=== PATIENT | female | born 1985 | race Two or more races ===

== ENCOUNTER 2021-03-08 16:17 | Outpatient (REF) | payer BC, MEDICAID, SELFPAY ==
[2021-03-08 16:42] LABS: MANUAL DIFF FLAG NO
[2021-03-08 16:50] LABS: Basophils Absolute Auto 0.1 X10*3/uL (0.0-0.2); Basophils Percent Auto 0.5 % (0-2); Eosinophils Absolute Auto 0.2 X10*3/uL (0.0-0.4); Hematocrit 40.5 % (37-47); Hemoglobin 13.1 g/dl (12.0-16.0); Imm Gran Abs Auto 0.03 X10*3/uL (0.00-0.03); Imm Gran Pct Auto 0.3 % (0.0-0.4); Lymphocytes Absolute Auto 2.4 X10*3/uL (1.2-4.9); Lymphocytes Percent Auto 23.8 % (20-40); Mean Corpuscular HGB Conc 32.3 g/dl (31.0-35.0); Mean Corpuscular Hemoglobin 27.5 pg (27.0-33.0); Mean Corpuscular Volume 84.9 fL (80-98); Mean Platelet Volume 10.4 fL (9.4-12.3); Monocytes Absolute Auto 0.6 X10*3/uL (0.1-1.2); Monocytes Percent Auto 5.8 % (2-11); Neutrophils Absolute Auto 6.9 X10*3/uL (2.0-8.3); Neutrophils Percent Auto 67.6 % (45-73); Platelet Count 340 X10*3/uL (160-400); Red Blood Count 4.77 X10*6/uL (4.20-5.50); Red Cell Distribution Width 13.9 % (11.0-16.0); White Blood Count 10.1 X10*3/uL (4.8-10.8)
[2021-03-08 17:48] LABS: Alanine Aminotransferase 22 U/L (0-31); Albumin Level 3.8 g/dL (3.5-5.0); Alkaline Phosphatase 94 U/L (39-117); Anion Gap 12 (12-20); Aspartate Amino Transferase 24 U/L (5-31); Bilirubin Total 0.2 mg/dL (0.0-1.0); Blood Urea Nitrogen 15 mg/dL (9-16); C Reactive Protein 1.87 mg/dL (< or = 0.50); Calcium 9.2 mg/dL (8.4-10.2); Carbon Dioxide 26 mmol/L (22-29); Chloride 105 mmol/L (96-108); Estimated Glomerular Filt Rate > 60; Glucose Random 111 mg/dL (60-115); Potassium 4.5 mmol/L (3.3-5.1); Sodium 138 mmol/L (135-145); Total Protein 7.2 g/dL (6.5-8.0)
[2021-03-08 17:57] LABS: Rheumatoid Factor < 15.0 IU/mL (<15.0)
[2021-03-08 18:05] LABS: Free T4 (Free Thyroxine) 0.94 ng/dL (0.71-1.85); Thyroid Stimulating Hormone 1.83 uIU/mL (0.32-4.0)
[2021-03-12 23:06] LABS: Anti Nuclear Antibody Screen POSITIVE (NEGATIVE)
== END 2021-03-08 16:18 | disposition home or self-care (01) ==
LOC: HO.LAB 16:17
PROVIDERS: PCP Internal Medicine; Visit Provider Internal Medicine
DX: M25.562 Pain in left knee (principal); M25.561 Pain in right knee; R63.5 Abnormal weight gain
CPT/HCPCS: 36415; 80053; 84439; 84443; 85025; 86038; 86039; 86140; 86431

== ENCOUNTER 2021-06-06 17:00 | Outpatient (RCR) | payer MEDICAID, SELFPAY | END 2021-06-13 16:47 | disposition home or self-care (01) | LOC: HO.PTCHIC 17:00 | PROVIDERS: PCP Internal Medicine; Visit Provider Internal Medicine | DX: M25.562 Pain in left knee (principal); M25.561 Pain in right knee | CPT/HCPCS: 97110; 97162 ==

== ENCOUNTER 2023-08-01 09:12 | Outpatient (REF) | payer MEDICAID, SELFPAY ==
[2023-08-01 14:29] LABS: MANUAL DIFF FLAG NO
[2023-08-01 14:34] LABS: Basophils Absolute Auto 0.1 X10*3/uL (0.0-0.2); Basophils Percent Auto 1.2 % (0-2); Eosinophils Absolute Auto 0.6 X10*3/uL (0.0-0.4); Eosinophils Percent Auto 5.9 % (0-4); Hematocrit 41.2 % (37.0-47.0); Hemoglobin 12.8 g/dl (12.0-16.0); Imm Gran Abs Auto 0.03 X10*3/uL (0.00-0.03); Imm Gran Pct Auto 0.3 % (0.0-0.4); Lymphocytes Percent Auto 42.5 % (20-40); Mean Corpuscular HGB Conc 31.1 g/dl (31.0-35.0); Mean Corpuscular Hemoglobin 26.3 pg (27.0-33.0); Mean Corpuscular Volume 84.6 fL (80.0-98.0); Mean Platelet Volume 11.1 fL (9.4-12.3); Monocytes Absolute Auto 0.6 X10*3/uL (0.1-1.2); Monocytes Percent Auto 6.6 % (2-11); Neutrophils Absolute Auto 4.1 x10*3/uL (2.0-8.3); Neutrophils Percent Auto 43.5 % (45-73); Platelet Count 386 X10*3/uL (160-400); Red Blood Count 4.87 X10*6/uL (4.20-5.50); Red Cell Distribution Width 14.4 % (11.0-16.0); White Blood Count 9.5 X10*3/uL (4.8-10.8)
[2023-08-01 14:56] LABS: Alanine Aminotransferase 14 U/L (0-31); Alkaline Phosphatase 78 U/L (39-117); Anion Gap 12 (12-20); Aspartate Amino Transferase 17 U/L (5-31); Bilirubin Total 0.2 mg/dL (0.0-1.0); Blood Urea Nitrogen 15 mg/dL (9-16); Calcium 9.6 mg/dL (8.4-10.2); Carbon Dioxide 29 mmol/L (22-29); Chloride 103 mmol/L (96-108); Cholesterol 162 mg/dL (<200); Estimated Glomerular Filt Rate > 60; Glucose Random 84 mg/dL (60-115); HDL Cholesterol 47 mg/dL (>40); LDL Cholesterol Calculated 97 mg/dL (<100); Potassium 3.8 mmol/L (3.3-5.1); Sodium 140 mmol/L (135-145); Total Protein 7.4 g/dL (6.5-8.0); Triglycerides 93 mg/dL (<150)
[2023-08-01 15:14] LABS: TSH reflex Free T4 2.95 uIU/mL (0.32-4.0)
== END 2023-08-01 09:13 | disposition home or self-care (01) ==
LOC: HO.CHCLDS 09:12
PROVIDERS: Visit Provider Family Medicine
DX: F41.9 Anxiety disorder, unspecified (principal)
CPT/HCPCS: 36415; 80053; 80061; 84443; 85025

== ENCOUNTER 2023-08-25 12:33 | Outpatient (REF) | payer MEDICAID, SELFPAY ==
[2023-08-25 14:12] LABS: MANUAL DIFF FLAG NO
[2023-08-25 14:20] LABS: Appearance Urine Clear; Color Urine Yellow; Glucose Urine UA Negative (Negative); Leukocyte Esterase Urine Negative (Negative); Nitrite Urine Negative (Negative); PH 5.5 (5.0-9.0); Urine Blood Negative (Negative); Urine Ketones Negative (Negative); Urine Protein Negative (Neg-Trace)
[2023-08-25 14:21] LABS: Basophils Absolute Auto 0.1 X10*3/uL (0.0-0.2); Basophils Percent Auto 0.8 % (0-2); Eosinophils Absolute Auto 0.3 X10*3/uL (0.0-0.4); Eosinophils Percent Auto 2.9 % (0-4); Hematocrit 37.4 % (37.0-47.0); Hemoglobin 11.5 g/dl (12.0-16.0); Imm Gran Abs Auto 0.04 X10*3/uL (0.00-0.03); Imm Gran Pct Auto 0.5 % (0.0-0.4); Lymphocytes Absolute Auto 1.7 X10*3/uL (1.2-4.9); Lymphocytes Percent Auto 19.5 % (20-40); Mean Corpuscular HGB Conc 30.7 g/dl (31.0-35.0); Mean Corpuscular Hemoglobin 25.8 pg (27.0-33.0); Mean Corpuscular Volume 83.9 fL (80.0-98.0); Mean Platelet Volume 9.8 fL (9.4-12.3); Monocytes Absolute Auto 0.5 X10*3/uL (0.1-1.2); Monocytes Percent Auto 5.5 % (2-11); Neutrophils Absolute Auto 6.1 x10*3/uL (2.0-8.3); Neutrophils Percent Auto 70.8 % (45-73); Platelet Count 489 X10*3/uL (160-400); Red Blood Count 4.46 X10*6/uL (4.20-5.50); White Blood Count 8.6 X10*3/uL (4.8-10.8)
[2023-08-25 14:23] LABS: Bacteria Urine None Seen (None Seen); Hyaline Casts Urine 0-2 /LPF (0-2); RBC Urine 0-2 /HPF (0-2); WBC Urine 0-5 /HPF (0-5)
== END 2023-08-25 12:34 | disposition home or self-care (01) ==
LOC: HO.CHCLDS 12:33
PROVIDERS: Visit Provider Internal Medicine
DX: R31.0 Gross hematuria (principal)
CPT/HCPCS: 36415; 81001; 85025

== ENCOUNTER 2023-09-15 13:13 | Outpatient (REF) | payer MEDICAID, SELFPAY ==
[2023-09-15 14:30] LABS: MANUAL DIFF FLAG NO
[2023-09-15 14:36] LABS: Basophils Absolute Auto 0.1 X10*3/uL (0.0-0.2); Basophils Percent Auto 1.3 % (0-2); Eosinophils Absolute Auto 0.3 X10*3/uL (0.0-0.4); Eosinophils Percent Auto 4.1 % (0-4); Hematocrit 40.6 % (37.0-47.0); Hemoglobin 12.8 g/dl (12.0-16.0); Imm Gran Abs Auto 0.03 X10*3/uL (0.00-0.03); Imm Gran Pct Auto 0.5 % (0.0-0.4); Lymphocytes Absolute Auto 2.8 X10*3/uL (1.2-4.9); Mean Corpuscular HGB Conc 31.5 g/dl (31.0-35.0); Mean Corpuscular Hemoglobin 26.3 pg (27.0-33.0); Mean Corpuscular Volume 83.5 fL (80.0-98.0); Mean Platelet Volume 10.5 fL (9.4-12.3); Monocytes Absolute Auto 0.4 X10*3/uL (0.1-1.2); Monocytes Percent Auto 6.6 % (2-11); Neutrophils Absolute Auto 2.9 x10*3/uL (2.0-8.3); Neutrophils Percent Auto 44.5 % (45-73); Platelet Count 374 X10*3/uL (160-400); Red Blood Count 4.86 X10*6/uL (4.20-5.50); Red Cell Distribution Width 15.4 % (11.0-16.0); White Blood Count 6.4 X10*3/uL (4.8-10.8)
== END 2023-09-15 13:14 | disposition home or self-care (01) ==
LOC: HO.CHCLDS 13:13
PROVIDERS: Visit Provider Family Medicine
DX: D75.839 Thrombocytosis, unspecified (principal)
CPT/HCPCS: 36415; 85025

== ENCOUNTER 2023-11-04 14:08 | Outpatient (REF) | payer MEDICAID, SELFPAY ==
[2023-11-04 15:29] LABS: MANUAL DIFF FLAG NO
[2023-11-04 16:26] LABS: Basophils Absolute Auto 0.1 X10*3/uL (0.0-0.2); Basophils Percent Auto 0.9 % (0-2); Eosinophils Absolute Auto 0.2 X10*3/uL (0.0-0.4); Eosinophils Percent Auto 2.5 % (0-4); Hematocrit 42.6 % (37.0-47.0); Hemoglobin 13.8 g/dl (12.0-16.0); Imm Gran Abs Auto 0.03 X10*3/uL (0.00-0.03); Imm Gran Pct Auto 0.4 % (0.0-0.4); Lymphocytes Absolute Auto 2.2 X10*3/uL (1.2-4.9); Lymphocytes Percent Auto 27.7 % (20-40); Mean Corpuscular HGB Conc 32.4 g/dl (31.0-35.0); Mean Corpuscular Hemoglobin 27.2 pg (27.0-33.0); Mean Corpuscular Volume 83.9 fL (80.0-98.0); Mean Platelet Volume 10.9 fL (9.4-12.3); Monocytes Absolute Auto 0.5 X10*3/uL (0.1-1.2); Monocytes Percent Auto 6.1 % (2-11); Neutrophils Absolute Auto 4.8 x10*3/uL (2.0-8.3); Neutrophils Percent Auto 62.4 % (45-73); Platelet Count 287 X10*3/uL (160-400); Red Blood Count 5.08 X10*6/uL (4.20-5.50); Red Cell Distribution Width 15.3 % (11.0-16.0); White Blood Count 7.8 X10*3/uL (4.8-10.8)
[2023-11-04 16:38] LABS: Alanine Aminotransferase 20 U/L (0-31); Albumin Level 3.9 g/dL (3.5-5.0); Alkaline Phosphatase 63 U/L (39-117); Anion Gap 9 (12-20); Aspartate Amino Transferase 15 U/L (5-31); Bilirubin Total 0.3 mg/dL (0.0-1.0); Blood Urea Nitrogen 14 mg/dL (9-16); C Reactive Protein 0.59 mg/dL (< or = 0.50); Calcium 9.1 mg/dL (8.4-10.2); Carbon Dioxide 28 mmol/L (22-29); Chloride 107 mmol/L (96-108); Estimated Glomerular Filt Rate > 60; Glucose Random 102 mg/dL (60-115); Sodium 140 mmol/L (135-145); Total Protein 6.9 g/dL (6.5-8.0)
[2023-11-04 16:55] LABS: Appearance Urine Cloudy; Color Urine Yellow; Glucose Urine UA Negative (Negative); Leukocyte Esterase Urine Negative (Negative); Nitrite Urine Negative (Negative); PH 7.5 (5.0-9.0); Specific Gravity - Urine 1.025 (1.005-1.025); Urine Blood Negative (Negative); Urine Ketones Negative (Negative); Urine Protein Negative (Neg-Trace)
[2023-11-04 17:10] LABS: Bacteria Urine None Seen (None Seen); Hyaline Casts Urine 0-2 /LPF (0-2); RBC Urine 0-2 /HPF (0-2); Squamous Epithelial Cell Urine 0-2 /HPF (0-2); WBC Urine 0-5 /HPF (0-5)
[2023-11-04 17:19] LABS: Erythrocyte Sedimentation Rate 5 MM/HR (0-20)
[2023-11-05 21:58] LABS: Prot Elec - Alpha1 0.3 g/dL (0.2-0.3); Prot Elec - Alpha2 0.6 g/dL (0.5-0.9); Prot Elec - Beta 1 0.4 g/dL (0.4-0.6); Prot Elec - Beta 2 0.4 g/dL (0.2-0.5); Prot Elec - Gamma 1.2 g/dL (0.8-1.7); Prot Elec - Total Protein 6.9 g/dL (6.1-8.1)
[2023-11-05 22:23] LABS: Anti-Centromere B Antibodies <1.0 NEG AI (<1.0 NEG)
[2023-11-05 22:29] LABS: Anti DNA DS Antibody <1 IU/mL; Antibody to SS-A Antigen <1.0 NEG AI (<1.0 NEG); Antibody to SS-B Antigen <1.0 NEG AI (<1.0 NEG); Myeloperoxidase Antibody <1.0 AI; Proteinase 3 PR3 Antibodies <1.0 AI; SM/Ribonucleoprotein Ab <1.0 NEG AI (<1.0 NEG); Scleroderma 70 Antibody <1.0 NEG AI (<1.0 NEG); Smith Protein <1.0 NEG AI (<1.0 NEG)
[2023-11-06 11:43] LABS: Complement C3 137 mg/dL (83-193)
[2023-11-07 14:38] LABS: IgA 229 mg/dL (47-310); IgG 1220 mg/dL (600-1640); IgM 186 mg/dL (50-300)
[2023-11-09 13:34] LABS: Anti Nuclear Antibody Screen POSITIVE (NEGATIVE)
[2023-11-11 21:39] LABS: PTT (LAC) Screen 36 sec (<=40)
== END 2023-11-04 14:09 | disposition home or self-care (01) ==
LOC: HO.LAB 14:08
PROVIDERS: PCP Internal Medicine; Visit Provider Nurse Practitioner Family
DX: R76.8 Other specified abnormal immunological findings in serum (principal); R21 Rash and other nonspecific skin eruption; I32 Pericarditis in diseases classified elsewhere
CPT/HCPCS: 36415; 80053; 81001; 82550; 82784; 84165; 85025; 85597; 85598; 85613; 85652; 85730; 86021; 86038; 86039; 86140; 86160; 86225; 86235; 86334; 99212

== ENCOUNTER 2023-11-04 14:08 | Outpatient (AMB) | payer MEDICAID, SELFPAY ==
--- NOTE | 2023-11-04 14:11 | MHC.OFFVIS ---
Intake Vital Signs 11/04/23 14:13 Height 5 ft 2 in Weight 221 lb 9.033 oz BMI 40.5 BP 110/80 Blood Pressure Location Rt brachial Position Sitting Pulse 76 Pulse Source Pulse Oximeter Pulse Oximetry (%) 98 Oxygen Delivery Method Room Air Intake Visit Reasons: + ZOILA/CM Intake Note: New patient, presents today for +ZOILA. Floral Designer Required: No Accompanied by: Self / Same As Patient Allergies No Known Allergies Allergy (Verified 11/19/23 16:07) HPI HPI Comments History of Present Illness Details Ms. Saenz, 37 yoF presents today, on referral from PCP, for evaluation of History of +ZOILA 1:80 and precordial pain with a history of pericarditis. She was found to have pericarditis in recent weeks. She has no current symptoms as it was resolved with colchicine. The first occurrence of pericarditis was with her 2nd over 1 year ago. She denies other symptoms of CTD or inflammatory processes. [facility] Medical History (Updated 11/19/23 @ 17:01 by NORRIS Mcfadden) ZOILA positive Rash and nonspecific skin eruption Pericarditis in diseases classified elsewhere Pneumonia of left lower lobe due to infectious organism Pericardial effusion Adjustment disorder with mixed anxiety and depressed mood Anxiety Seasonal allergic rhinitis Mild gingivitis Family History Other Arthritis Social History Household Members: Spouse and Children Alcohol intake: former Patient Tobacco Use Status: Never used Tobacco Current occupational status: employed Current occupation: [employer] at [employer] Female Reproductive History Menstrual Total pregnancies: 2 Review of Systems Const All systems reviewed & are unremarkable except as noted in HPI and below Physical Exam Vital Signs: Last Vital Signs Pulse 76 11/04/23 14:13 BP 110/80 11/04/23 14:13 Pulse Ox 98 11/04/23 14:13 Oxygen Delivery Method Room Air 11/04/23 14:13 BMI result Body Mass Index 40.5 Vital signs reviewed. Constitutional: Non-toxic appearing. No acute distress. Well-developed and well-nourished. HEENT: Normocephalic and atraumatic. External auditory canals without erythema or edema bilaterally. Dry mucous membranes. No pharyngeal erythema or exudates. Skin: Warm and dry. No rashes or lesions noted. Neck: Full and painless range of motion. No cervical lymphadenopathy. Cardio: Regular rate and rhythm. No murmurs, gallops, or rubs. No lower extremity edema. No JVD. no chest wall or costovertebral tenderness Pulmonary: No respiratory distress. No accessory muscle usage. Gastrointestinal: Soft, nontender, and nondistended in all 4 quadrants. Normoactive bowel sounds in all 4 quadrants. Genitourinary: No CVA tenderness. Musculoskeletal: Normal range of motion in joints throughout the body. No deformity or other signs of injury. Neuro: Alert and oriented x4. Cranial nerves 2-12 grossly intact. No focal deficits appreciated. Assessment & Plan Assessment & Plan (1) Pericarditis in diseases classified elsewhere: Code(s): I32 - Pericarditis in diseases classified elsewhere (2) ZOILA positive: Code(s): R76.8 - Other specified abnormal immunological findings in serum Plan The patient has a history of a weakly positive ZOILA at 1:80. There is no records of ELVA so I will obtain updated labs for those. Pericarditis can be an accompanying feature to LUPUS. I do not see any other clinical signs on PE or noted in the patient's history for LUPUS/CTD. I will obtain a thorough Rheum panel an evaluate further. I spent 35 minutes reviewing history, evaluating patient and documenting. f/u 2 weeks Orders: Orders Immunoglobulins,IgG IgA IgM 11/04/23 I32 - Pericarditis in diseases classified elsewhere, R21 - Rash and other nonspecific skin eruption Complement C3 11/04/23 I32 - Pericarditis in diseases classified elsewhere, R21 - Rash and other nonspecific skin eruption Complement C4 11/04/23 I32 - Pericarditis in diseases classified elsewhere, R21 - Rash and other nonspecific skin eruption C Reactive Protein 11/04/23 I32 - Pericarditis in diseases classified elsewhere, R21 - Rash and other nonspecific skin eruption ZOILA Reflex Titer and Pattern 11/04/23 I32 - Pericarditis in diseases classified elsewhere, R21 - Rash and other nonspecific skin eruption ANCA Vasculitides 11/04/23 I32 - Pericarditis in diseases classified elsewhere, R21 - Rash and other nonspecific skin eruption Anti Extractable Nuclear Ag 11/04/23 I32 - Pericarditis in diseases classified elsewhere, R21 - Rash and other nonspecific skin eruption Erythrocyte Sedimentation Rate 11/04/23 I32 - Pericarditis in diseases classified elsewhere, R21 - Rash and other nonspecific skin eruption Sjogren's Antibodies 11/04/23 I32 - Pericarditis in diseases classified elsewhere, R21 - Rash and other nonspecific skin eruption UA w Microscopic 11/04/23 I32 - Pericarditis in diseases classified elsewhere, R21 - Rash and other nonspecific skin eruption Complete Blood Count Auto Diff 11/04/23 I32 - Pericarditis in diseases classified elsewhere, R21 - Rash and other nonspecific skin eruption Comprehensive Met. Panel 11/04/23 I32 - Pericarditis in diseases classified elsewhere, R21 - Rash and other nonspecific skin eruption Anti-Centromere B Antibodies 11/04/23 I32 - Pericarditis in diseases classified elsewhere, R21 - Rash and other nonspecific skin eruption Anti DNA DS Antibody 11/04/23 I32 - Pericarditis in diseases classified elsewhere, R21 - Rash and other nonspecific skin eruption Creatine Kinase Total 11/04/23 I32 - Pericarditis in diseases classified elsewhere, R21 - Rash and other nonspecific skin eruption Immunofixation Pnl, Serum 11/04/23 I32 - Pericarditis in diseases classified elsewhere, R21 - Rash and other nonspecific skin eruption Protein Electrophoresis, Serum 11/04/23 I32 - Pericarditis in diseases classified elsewhere, R21 - Rash and other nonspecific skin eruption Scleroderma 70 Antibody 11/04/23 I32 - Pericarditis in diseases classified elsewhere, R21 - Rash and other nonspecific skin eruption Lupus Anticoagulant Panel 11/04/23 I32 - Pericarditis in diseases classified elsewhere, R21 - Rash and other nonspecific skin eruption Coding Level of Care Code New Pt Level 3 (24464) Diagnoses Pericarditis in diseases classified elsewhere I32 ZOILA positive R76.8
[2023-11-04 14:13] VITALS: BP 110/80; PULSE 76; O2SAT 98; BMI 40.5
== END 2023-11-04 15:03 | disposition home or self-care (01) ==
PROVIDERS: PCP Internal Medicine; Visit Provider Nurse Practitioner Family
DX: R76.8 Other specified abnormal immunological findings in serum (principal); I32 Pericarditis in diseases classified elsewhere
CPT/HCPCS: 99203

== ENCOUNTER 2023-11-19 15:49 | Outpatient (AMB) | payer MEDICAID, SELFPAY ==
--- NOTE | 2023-11-19 16:02 | MHC.OFFVIS ---
Vital Signs 11/19/23 16:08 Height 5 ft 2 in Weight 487 lb 3.545 oz BMI 89.1 BP 120/76 Blood Pressure Location Rt brachial Position Sitting Pulse 91 Pulse Source Pulse Oximeter Pulse Oximetry (%) 98 Oxygen Delivery Method Room Air Intake Visit Reasons: Pericarditis with Hx of +ZOILA Intake Note: Patient last seen 11/04/23, presents today for follow up and test results. c/o corona tingling and numbness Pulp Refiner Operator Required: No Accompanied by: Child Allergies No Known Allergies Allergy (Verified 11/19/23 16:07) HPI Comments Details: Ms. Saenz, 37 yoF presents today, to review labs and diagnostics. She denies chest pain are recurrent since last visit. Initial history 11/04/2023: Ms. Saenz 37 yoF presents today, on referral from PCP, for evaluation of History of +ZOILA 1:80 and precordial pain with a history of pericarditis. She was found to have pericarditis in recent weeks. She has no current symptoms as it was resolved with colchicine. The first occurrence of pericarditis was with her 2nd over 1 year ago. She denies other symptoms of CTD or inflammatory processes. [facility] Medical History (Updated 12/14/23 @ 22:48 by NORRIS Mcfadden) Elevated CK ZOILA positive Rash and nonspecific skin eruption Pericarditis in diseases classified elsewhere Pneumonia of left lower lobe due to infectious organism Pericardial effusion Adjustment disorder with mixed anxiety and depressed mood Anxiety Seasonal allergic rhinitis Mild gingivitis Family History Other Arthritis Social History Household Members: Spouse and Children Alcohol intake: former Patient Tobacco Use Status: Never used Tobacco Current occupational status: employed Current occupation: [employer] at [employer] Review of Systems Const All systems reviewed & are unremarkable except as noted in HPI and below Physical Exam Vital Signs: Last Vital Signs Pulse 91 11/19/23 16:08 BP 120/76 11/19/23 16:08 Pulse Ox 98 11/19/23 16:08 Oxygen Delivery Method Room Air 11/19/23 16:08 BMI result Body Mass Index 89.1 APPEARANCE: Patient in no acute distress EYES no redness, normal EARS:? External ear normal. NOSE/SINUS:? Airflow through both nares, no nasal discharge, no bleeding THROAT:? Oral mucosa moist, no ulcerations NECK:? No thyromegaly or masses, no adenopathy, trachea midline. HEART:? Regular rhythm, S1-S2 heard, no murmurs, rubs or gallops. LUNG:? Clear to percussion and auscultation EXTREMITIES:? No edema, no calf tenderness, normal peripheral pulses. NEURO:? Oriented and alert x3.? No focal weakness.? Reflexes symmetric.? Gait normal. SKIN:? There are no skin lesions evident. No objective signs of Raynaud's phenomenon. JOINT EXAM: Cervical Spine:.? Full range of motion without pain; no tenderness. Thoracic Spine:.? No scoliosis.? No tenderness on palpation. Lumbar Spine:.? Alignment normal.? Full range of motion without pain, no tenderness. Chest Wall:.? No tenderness, swelling, increased warmth or erythema. Hands:.? Normal pain-free range of motion without tenderness, swelling, increased warmth or erythema. Able to make a full fist and has a good scale operator strength. Wrists:.? Normal pain-free range of motion without tenderness, swelling, increased warmth or erythema. Elbows:. Normal pain-free range of motion without tenderness, swelling, increased warmth or erythema. Shoulders:.?? Full range of motion without pain. No tenderness, weakness, swelling, increased warmth or erythema. Hips:.? Full range of motion without pain. Hip bursa:.? No tenderness. Knees:.?? Normal pain-free range of motion without tenderness, swelling, increased warmth or erythema.? There is no effusion or crepitation Ankles:.? Normal pain-free range of motion without tenderness, swelling, increased warmth or erythema. Feet:.? Normal pain-free range of motion without tenderness, swelling, increased warmth or erythema. Tender points:? No tenderness to digital palpation at the occiput, trapezius, second rib, lateral epicondyle, knees, greater trochanter and gluteal area bilaterally. ? Assessment & Plan Assessment & Plan (1) ZOILA positive: Code(s): R76.8 - Other specified abnormal immunological findings in serum Category: Medical (2) Rash and nonspecific skin eruption: Comment: erythematous macules on chest Code(s): R21 - Rash and other nonspecific skin eruption Category: Medical (3) Pericarditis in diseases classified elsewhere: Code(s): I32 - Pericarditis in diseases classified elsewhere Category: Medical (4) Elevated CK: Code(s): R74.8 - Abnormal levels of other serum enzymes Category: Medical Plan The patient had a weakly positive ZOILA at 1:80. All subsequent labs were negative for connective tissue or inflammatory processes. Her episodes of pericarditis can be primary care pericarditis. However given that she is in the age and gender demographics for lupus, we will continue to monitor. The nonspecific rash has since resolved and was likely contact dermatitis. The patient also has a mildly elevated CK which we will also keep an eye on. Follow-up in 6 months 15 minutes spent if reviewing chart, evaluating patient and documenting Coding Level of Care Code Est Pt Level 2 (80349) Diagnoses ZOILA positive R76.8 Rash and nonspecific skin eruption R21 Pericarditis in diseases classified elsewhere I32 Elevated CK R74.8
[2023-11-19 16:08] VITALS: BP 120/76; PULSE 91; O2SAT 98; BMI 89.1
== END 2023-11-19 16:33 | disposition home or self-care (01) ==
PROVIDERS: PCP Internal Medicine; Referring Provider Internal Medicine; Visit Provider Nurse Practitioner Family
DX: R76.8 Other specified abnormal immunological findings in serum (principal); R21 Rash and other nonspecific skin eruption; I32 Pericarditis in diseases classified elsewhere; R74.8 Abnormal levels of other serum enzymes
CPT/HCPCS: 99212

== ENCOUNTER → 2023-11-19 15:49 | Outpatient (BNVA) | payer MEDICAID, SELFPAY | PROVIDERS: PCP Internal Medicine; Visit Provider Nurse Practitioner Family | DX: R76.8 Other specified abnormal immunological findings in serum (principal); R74.8 Abnormal levels of other serum enzymes; R21 Rash and other nonspecific skin eruption; I32 Pericarditis in diseases classified elsewhere | CPT/HCPCS: 99212 ==

== ENCOUNTER 2024-03-04 07:30 | Outpatient (AMB) | payer MEDICAID, SELFPAY ==
--- NOTE | 2024-03-04 07:31 | MHC.OFFVIS ---
Vital Signs 03/04/24 07:38 Height 5 ft 2 in Weight 223 lb 12.307 oz BMI 40.9 BP 120/82 Blood Pressure Location Lt brachial Position Sitting Pulse 86 Pulse Source Pulse Oximeter Pulse Oximetry (%) 99 Oxygen Delivery Method Room Air Intake Visit Reasons: +ZOILA/CM Intake Note: Patient presents for + ZOILA. Feeling constant paint in both hips and legs. Tingling and numbness on both hands. Allergies No Known Allergies Allergy (Verified 03/04/24 07:37) Medication List - Last Reconciled 03/04/24 by Prasanth Torres MD docosahexaenoic acid (Algal [place]-3 DHA) mg PO mecobalamin (vitamin B12) (B12 Active) 1,000 mcg PO DAILY HPI Comments Details: Patient returns for re-evaluation. She states that she feels about the same overall. Has not had any current symptoms suggestive of pericarditis Initial history 11/04/2023: Ms. Saenz, 37 yoF presents today, on referral from PCP, for evaluation of History of +ZOILA 1:80 and precordial pain with a history of pericarditis. She was found to have pericarditis in recent weeks. She has no current symptoms as it was resolved with colchicine. The first occurrence of pericarditis was with her 2nd over 1 year ago. She denies other symptoms of CTD or inflammatory processes. [facility] Medical History Elevated CK ZOILA positive Rash and nonspecific skin eruption Pericarditis in diseases classified elsewhere Pneumonia of left lower lobe due to infectious organism Pericardial effusion Adjustment disorder with mixed anxiety and depressed mood Anxiety Seasonal allergic rhinitis Mild gingivitis Family History Other Arthritis Social History Household Members: Spouse and Children Alcohol intake: former Patient Tobacco Use Status: Never used Tobacco Current occupational status: employed Current occupation: [employer] Female Reproductive History Menstrual Total pregnancies: 2 Number of Living Children: 2 Review of Systems Card Denies chest pain Physical Exam Vital Signs: Last Vital Signs Pulse 86 03/04/24 07:38 BP 120/82 03/04/24 07:38 Pulse Ox 99 03/04/24 07:38 Oxygen Delivery Method Room Air 03/04/24 07:38 BMI result Body Mass Index 40.9 Const General: cooperative, healthy appearing and comfortable Nutritional Appearance: obese morbidly obese Orientation/consciousness: patient oriented x3 Limitations: no limitations HEENT Head: Yes normocephalic and Yes atraumatic Mouth: moist mucous membranes Resp Effort & Inspection: normal respiratory effort and able to speak in complete sentences Auscultation: clear to auscultation bilaterally Cardio Rate: regular rate Rhythm: regular rhythm Neuro General: patient oriented x3 Extrem Other: No active synovitis Normal nailfold capillaroscopy Assessment & Plan Assessment & Plan (1) ZOILA positive: Code(s): R76.8 - Other specified abnormal immunological findings in serum Category: Medical Plan: This is a 38-year-old female who initially presented to our office earlier this year due to a positive ZOILA in the setting of pericarditis. Patient had an episode of pericarditis that was treated with colchicine. Thumbs resolved with colchicine. She was on colchicine for about 3 months. Upon evaluation today I do not see any signs suggestive of an underlying autoimmune rheumatic disease. Comprehensive serologies were negative in the past. Discussed symptoms and signs that are suggestive of an autoimmune rheumatic disease. At this time. Patient can follow-up as needed (2) Pericarditis in diseases classified elsewhere: Code(s): I32 - Pericarditis in diseases classified elsewhere Category: Medical Plan I spent 16 minutes reviewing patient's chart, evaluating patient, counseling patient and documenting in the chart Coding Level of Care Code Est Pt Level 3 (43533) Diagnoses ZOILA positive R76.8 Pericarditis in diseases classified elsewhere I32
[2024-03-04 07:38] VITALS: BP 120/82; PULSE 86; O2SAT 99; BMI 40.9
== END 2024-03-04 07:54 | disposition home or self-care (01) ==
PROVIDERS: PCP Internal Medicine; Visit Provider Student in an Organized Health Care Education/Training Program
DX: R76.8 Other specified abnormal immunological findings in serum (principal); I32 Pericarditis in diseases classified elsewhere
CPT/HCPCS: 99213

== ENCOUNTER → 2024-03-04 07:30 | Outpatient (BNVA) | payer MEDICAID, SELFPAY | PROVIDERS: PCP Internal Medicine; Visit Provider Student in an Organized Health Care Education/Training Program | DX: R76.8 Other specified abnormal immunological findings in serum (principal); I32 Pericarditis in diseases classified elsewhere | CPT/HCPCS: 99212 ==

== ENCOUNTER 2024-11-05 16:14 | Outpatient (REF) | payer MEDICAID, SELFPAY ==
--- OUTSIDE RECORDS SUMMARY | 2024-11-05 17:01 | XMS_ITS | Encounter Summary ---
Author Organization [employer] Address [address] [place] [address] 7 [place] [address] Care Team Providers Care Cath Lab Nurse Name Role Phone Latonia Batres MD Primary Care Provider [phone] Encounter Details Date Type Department Care Team ([facility] st Contact Info) Description 08/21/2023 Orders Only [facility] [address] [place], [place] [id number] Latonia Batrse MD [address] [place] [address] Pneumonia of left lower lobe due to infectious organism (Primary Dx) Social History Tobacco Use Types Packs/Day Years Used Date Smoking Tobacco: Never Passive Smoke Exposure: Never Smokeless Tobacco: Never Alcohol Use Standard Drinks/Week Comments Never 0 (1 standard drink = 0.6 oz pur e alcohol) Depression Answer Date Recorded Patient Health Questionnaire-9 Score 15 07/21/2023 Patient Health Questionnaire-9 Score 15 07/21/2023 Last PHQ-9: Questionnaire Data Not on file 1 09/21/2022 Depression Answer Date Recorded Patient Health Questionnaire-2 Score 0 07/21/2023 Comments Unknown Sex and Gender Information Value Date Recorded Sex Assigned at Female 06/03/2022 10:35 AM EDT Legal Sex Female 10:35 AM EDT Gender Identity Female 06/03/2022 10:35 AM EDT Sexual Orientation Straight 06/03/2022 10 :35 AM EDT documented as of this encounter Plan of Treatment Scheduled Orders Name Type Priority Associated Diagnoses Orde r Schedule XR Chest 2 Views Imaging Routine Pneumonia of left lower lobe due to infectious organism Expected: 08/21/2023 (Approximate), Expires: 08/21/2024 documented as of this encounter Visit Diagnoses Diagnosis Pneumonia of left lower lobe due to infectious organism- Primary documented in this encounter Additional Health Concerns Assessment Noted Time PHQ-9 Depression Total Score: 15 023 1:39 PM EST documented as of this encounter Care Teams Cath Lab Nurse Relationship Specialty Start Date End Date Latonia Batres MD [address] [place] [id number] PCP - General Internal Medicine 12/27/21 documented as of this encounter
--- OUTSIDE RECORDS SUMMARY | 2024-11-05 17:01 | XMS_ITS | Encounter Summary ---
Author Organization [employer] Address [address] [facility] 7 [place] [address] Care Team Providers Care Application Trainer Name Role Phone Latonia Batres MD Primary Care Provider [phone] Reason for Visit * Reason Onset Date Comments Nurse Triage 11/05/2024 Encounter Details Date Type Department Care Team ([facility] st Contact Info) Description 11/05/2024 Telephone [facility] [address] [place] [address] Latonia Batres MD [address] [place] [address] Nurse Triage Social History Tobacco Use Types Packs/Day Years [...] AM EDT documented as of this encounter Miscellaneous Notes * Telephone Encounter - Nathalia Olivares RN - 11/05/2024 10:55 AM EDT Called pt. She states that she has not gotten her menses x 2 months. Pt. Is not on control. Pt. Took 3 urine tests- Negative. Pt. States that menses are always regular and she gets them every 30 days. No discharge, no thoughts of STI, no nausea or breast tenderness. Protocol Used: Menstrual Period - Missed or Late (Adult) Protocol-Based Disposition: Appt. Today at 345pm in [facility] with PCP. Positive Triage Question: * Missed 2 or more periods in a row * All higher-acuity triage questions were negative Care Advice Discussed: * Test, When in Doubt * Menstrual Periods and Stress * Reasons To Call Back - Miss 2 periods or more * Telephone Encounter - Emir Sousa - 11/05/2024 10:44 AM EDT Symptom: Menstrual Periods Absent or Missed Outcome: Schedule an appointment to be seen within 24 hours Reason: This is the only possible outcome for this symptom Duration 2 months documented in this encounter Plan of Treatment Not on file documented as of this encounter Visit Diagnoses Not on filedocumented in this encounter Additional Health Concerns Assessment Noted Time PHQ-9 Depression Total Score: 15 023 1:39 PM EST documented as of this encounter Care Teams Application Trainer Relationship Specialty Start Date End Date Latonia Batres MD [address] [place] [id number] PCP - General Internal Medicine 12/27/21 documented as of this encounter
--- OUTSIDE RECORDS SUMMARY | 2024-11-05 17:01 | XMS_ITS | Encounter Summary ---
Author Organization [employer] Address [address] [facility] [address] [place] [address] Care Team Providers Care Assessment Director Name Role Phone Latonia Batres MD Primary Care Provider [phone] Reason for Visit * Reason Onset Date Comments Nurse Triage 02/23/2024 Encounter Details Date Type Department Care Team ([facility] st Contact Info) Description 02/23/2024 Telephone [facility] [address] [place] [address] Latonia Batres MD [address] [place] [address] Nurse Triage Social History Tobacco Use Types [...] encounter Miscellaneous Notes * Telephone Encounter - Apple Agudelo RN - 02/23/2024 3:08 PM EDT Triage call Pt reports chronic acne which has gotten worse since the beginning of January. Pt reports large area of outbreak on face, along hair line, ears. Pt describes this as large white heads that are cystic and painful. . Pt is requesting to see Provider. Pt has been using benzoyl peroxide morning and evening without any change. ASK apt with PCP 03/04/24 @ 330pm. Insurance is not verified. Pt isgoing to check with spouse if updated and will bring insurance cards to [facility] apt and will call aheadif any change. Pt agrees with disposition. Protocol Used: Acne (Pediatric) Protocol-Based Disposition: See in Office or Video Visit within 2 Weeks Video visit not offered Positive Triage Questions: * Many chronic red lumps * After treating with Benzoyl Peroxide (BP) for 2 months, acne not improved * All higher-acuity triage questions were negative Care Advice Discussed: * Reassurance and Education - Mild Acne (Whiteheads and Blackheads) * Benzoyl Peroxide Gel (OTC) * Antibiotic for Red Bumps * Washing the Face * Treating Red Lumps that are Painful * Pimples: How to Open Safely * Avoid Picking or Squeezing Acne * Expected Course * Reasons To Call Back * Telephone Encounter - Ede Borrero - 02/23/2024 2:53 PM EDT Symptoms: Acne - Caller Reports, Rash or Redness on One Body Area Only Outcome: Schedule an urgent appointment (within 4 hours) or talk to a nurse or provider soon Reason: Skin is painful to touch documented in this encounter Plan of Treatment Not on file documented as of this encounter Visit Diagnoses Not on filedocumented in this encounter Additional Health Concerns Assessment Noted Time PHQ-9 Depression Total Score: 15 023 1:39 PM EST documented as of this encounter Care Teams Assessment Director Relationship Specialty Start Date End Date Latonia Batres MD [address] [place] [address] PCP - General Internal Medicine 12/27/21 documented as of this encounter
--- OUTSIDE RECORDS SUMMARY | 2024-11-05 17:01 | XMS_ITS | Encounter Summary ---
Author Organization [employer] Address [address] [facility] 7 [place] [address] Care Team Providers Care Billet Inspector Name Role Phone Latonia Batres MD Primary Care Provider [phone] Reason for Visit * Reason Onset Date Comments Medication Question 08/20/2023 Encounter Details Date Type Department Care Team ([facility] st Contact Info) Description 08/20/2023 Telephone [facility] MEDICINE [address] [place] [address] Latonia Batres MD [address] [place] [address] Medication Question Social History Tobacco Use Types Packs/Day Years [...] encounter Miscellaneous Notes * Telephone Encounter - Marychuy Duran RN - 08/21/2023 3:36 PM EST Returned call to pt regarding message below. Pt informed of awaiting lab results prior to prescribing iron if indicated. Pt also informed of need to repeat CXR to determine any worsening of pneumonia. Pt verbalized understanding and agrees with plan. Pt agrees to go to [facility] for XR and order faxed as requested. * Telephone Encounter - Marychuy Duran RN - 08/20/2023 3:55 PM EST Please review message below and advise. Pt was seen for teleHDF yesterday and pt is stating the abxare not helping. Please advise if a CXR is needed at this point to assess ? Worsening pneumonia. Asfar as meds for anemia, I assume you are waiting on repeat CBC results ordered to determine if medsare indicated. * Telephone Encounter - Ede Borrero - 08/20/2023 11:13 AM EST Tc from pt is requesting call back from nurses regarding iron deficiency medication discussed in Televisit 08/19/23, the docusate sodium (Colace) 100 MG capsule was sent but the Iron deficiency medication was not (Pt unsure on medication name). Pt also is requesting advice on antibiotics, Azithromycin 500mg and cefotaxime 200mg. Medication was prescribed by [facility] 08/07/23 (Date of Admission), pt stated she is taking medication as advised but feels as if pneumonia keeps coming back. Please contact pt at [phone]. documented in this encounter Plan of Treatment Not on file documented as of this encounter Visit Diagnoses Not on filedocumented in this encounter Additional Health Concerns Assessment Noted Time PHQ-9 Depression Total Score: 15 023 1:39 PM EST documented as of this encounter Care Teams Billet Inspector Relationship Specialty Start Date End Date Latonia Batres MD [address] [place] [id number] PCP - General Internal Medicine 12/27/21 documented as of this encounter
--- OUTSIDE RECORDS SUMMARY | 2024-11-05 17:01 | XMS_ITS | Encounter Summary ---
Author Organization [employer] Address [address] [facility] 7 [place] [address] Care Team Providers Care Maintenance Helper Name Role Phone Latonia Batres MD Primary Care Provider [phone] Reason for Visit * Reason Onset Date Comments Nurse Triage 08/26/2023 Encounter Details Date Type Department Care Team ([facility] st Contact Info) Description 08/26/2023 Telephone [facility] MEDICINE [address] [place] [address] Latonia Batres MD [address] [place] [address] Nurse Triage Social History Tobacco Use Types [...] Telephone Encounter - Apple Agudelo RN - 08/26/2023 9:53 AM EST Triage call Pt reports having recently [place] [facility] 08/17/23 for pneumonia andpericarditis. Pt had tele visit with PCP 08/19/23. Pt finished antibiotics and has been doing well. Pt went to get chest xrays 08/21/23 and labs done 08/25/23. Pt calling today to report left sided chest pain again especially with deep breath. Pt has increased fatigue again , labs show HGB low. Neg for fever. Pt is drinking adequate liquids. Pt does have appt 09/01/23 scheduled with PCP but, is concerned about these symptoms and possible pneumonia again. Pt is given [facility] [address] today to be seen by provider. Pt agrees with this disposition and doesn't want to go to ED again at this point. Protocol Used: Chest Pain (Adult) Protocol-Based Disposition: See in Office or Video Visit Today Video visit not offered Positive Triage Question: * Patient wants to be seen * All higher-acuity triage questions were negative Care Advice Discussed: * Reassurance and Education - Chest Pains From Coughing * Cough Medicines * Humidifier * Expected Course * Reasons To Call Back - Chest pain increases in frequency, duration or severity - Chest pain lasts over 5 minutes - Chest pains persist over 3 days - Difficulty breathing or unusual sweating occurs - Fever over 100.4 F (38.0 C) - You become worse * Telephone Encounter - Lakisha Chowdary - 08/26/2023 9:26 AM EST Symptom: Breathing Trouble Outcome: Transfer to a nurse or provider NOW! Reason: Struggling for each breath (severe trouble breathing) The caller accepted this outcome documented in this encounter Plan of Treatment Not on file documented as of this encounter Visit Diagnoses Not on filedocumented in this encounter Additional Health Concerns Assessment Noted Time PHQ-9 Depression Total Score: 15 023 1:39 PM EST documented as of this encounter Care Teams Maintenance Helper Relationship Specialty Start Date End Date Latonia Batres MD [address] [place] [id number] PCP - General Internal Medicine 12/27/21 documented as of this encounter
--- OUTSIDE RECORDS SUMMARY | 2024-11-05 17:01 | XMS_ITS | Encounter Summary ---
Author Organization [employer] Address [address] [place] [address] 7 [place] [address] Care Team Providers Care Pit Furnace Operator Name Role Phone Latonia Batres MD Primary Care Provider [phone] Reason for Visit * Reason Onset Date Comments Nurse Triage 03/23/2024 Encounter Details Date Type Department Care Team ([facility] Contact Info) Description 03/23/2024 Telephone [facility] MED & PEDS [address] [place] [address] Latonia Batres MD [address] [place] [address] Nurse Triage Social History Tobacco Use Types [...] Telephone Encounter - Apple Agudelo RN - 03/23/2024 9:57 AM EDT Triage call Pt reports I'm sick . Pt has nasal congestion, fever (tactile), nausea, headache and dry cough. Pt doesn't have a home covid test and is advised to send family member to pick remover test kit at [facility] pharmacy or place of choice. Pt agrees. Home care reviewed , tylenol/motrin for headaches and malaise, cough drops, honey 2 tsp for cough, push liquids 6-8 glasses daily warm drinks like decaf tea, use hot shower for steam in bathroom and sit in that steamy air for coughing , humidifier at bedside if available. Pt agrees with home care. Pt advised to call back if Covid test obtained and positive results , Pt agrees. Pt has had some fast heart rate at rest, 2AM Hr 130 -150 bpm at rest. Pt reports at time of call Heart rate is regular. Pt is advised to seek assist/evaluation in closest ED if HR becomes rapid with irregular heart beat, difficulty breathing with chest pain/pressure, fever over 103. Pt agrees with disposition. Protocol Used: Cough (Adult) Protocol-Based Disposition: Home Care Positive Triage Question: * Cough with cold symptoms (e.g., runny nose, postnasal drip, throat clearing) * All higher-acuity triage questions were negative Care Advice Discussed: * Reassurance and Education - Cough * Cough Medicines * Coughing Spells * Prevent Dehydration * Humidifier * Fever Medicines * Expected Course * Reasons To Call Back - Difficulty breathing - Cough lasts more than 3 weeks - Fever lasts more than 3 days - You become worse * Telephone Encounter - Miley Dailey - 03/23/2024 9:26 AM EDT Symptom: Heartbeat Symptoms (Fast, Slow, or Irregular) Outcome: Schedule an urgent appointment (within 1 hour) or talk to a nurse or provider soon Reason: Started within the past 3 days The caller accepted this outcome documented in this encounter Plan of Treatment Not on file documented as of this encounter Visit Diagnoses Not on filedocumented in this encounter Additional Health Concerns Assessment Noted Time PHQ-9 Depression Total Score: 15 023 1:39 PM EST documented as of this encounter Care Teams Pit Furnace Operator Relationship Specialty Start Date End Date Latonia Batres MD [address] [place] [id number] PCP - General Internal Medicine 12/27/21 documented as of this encounter
--- OUTSIDE RECORDS SUMMARY | 2024-11-05 17:01 | XMS_ITS | Encounter Summary ---
Author Organization [employer] Address [address] [place] [address] [address] [place] [address] Care Team Providers Care Driver Guide Name Role Phone Latonia Batres MD Primary Care Provider [phone] Reason for Referral * Consultation (Routine) - Closed Specialty Diagnoses / Procedures Referred By Contac t Referred To Contact Rheumatology Diagnoses Pericardial effusion Latonia Batres MD [address] [place] [address] Phone: tel: fax: [facility] [address] [place] [address] Phone: tel: fax: Referral ID Status Reason Start Date Expiration Date V isits Requested Visits Authorized [id number] Closed Specialty Services Required 09/24/2023 09/23/2024 1 1 Encounter Details Date Type Department Care Team ([facility] st Contact Info) Description 09/24/2023 Orders Only [facility]ED[facility] [address] [place] [address] Latonia Batres MD [address] [place] [address] Pericardial effusion (Primary Dx) Social History Tobacco Use Types [...] of this encounter Plan of Treatment Scheduled Referrals Name Type Priority Associated Diagnoses Order Schedule Referral to Rheumatology Outpatient Referral Routine Pericardial effusion Expected: 09/24/2023 (Approximate), Expires: 09/24/2024 documented as of this encounter Visit Diagnoses Diagnosis Pericardial effusion- Primary Unspecified disease of pericardium documented in this encounter Additional Health Concerns Assessment Noted Time PHQ-9 Depression Total Score: 15 023 1:39 PM EST documented as of this encounter Care Teams Driver Guide Relationship Specialty Start Date End Date Latonia Batres MD [address] [place] [id number] PCP - General Internal Medicine 12/27/21 documented as of this encounter
--- OUTSIDE RECORDS SUMMARY | 2024-11-05 17:01 | XMS_ITS | Encounter Summary ---
Author Organization [employer] Address [address] [place] [address] 7 [place] [address] Care Team Providers Care Level Vial Curvature Gauger Name Role Phone Latonia Batres MD Primary Care Provider [phone] Reason for Visit * Reason Comments Amenorrhea Alopecia Encounter Details Date Type Department Care Team ([facility] Contact Info) Description 11/05/2024 3:45 PM EDT Office Visit [facility] CH[facility] MED & PEDS [address] [place] [address] Latonia Batres MD [address] [place] [address] Hair loss (Primary Dx); Missed period Social History Tobacco Use Types Packs/Day Years [...] AM EDT documented as of this encounter Last Filed Vital Signs Vital Sign Reading Time Taken Comments Blood Pressure 123/77 11/05/2024 4:00 PM EDT Pulse 98 11/05/2024 4:00 PM EDT Temperature 36.3 ??C (97.3 ??F) 11/05/2024 4:00 PM ED T Respiratory Rate 20 11/05/2024 4:00 PM EDT Oxygen Saturation 98% 11/05/2024 4:00 PM EDT Inhaled Oxygen Concentration - - Weight 91.6 kg (202 lb) 11/05/2024 4:00 PM EDT Height 157.5 cm (5' 2 ) 11/05/2024 4:00 PM EDT Body Mass Index 36.95 11/05/2024 4:00 PM EDT documented in this encounter Progress Notes * Latonia Batres MD - 11/05/2024 3:45 PM EDT Subjective Patient ID: Jose Matthew is a 38 y.o. female who presents for Amenorrhea and Alopecia. HPI 2 months history of missed menstrual period. No associated symptom of . Patient denies nausea/vomiting. Only had some epigastric discomfort. She is sexually active. History of hearing loss for the last 2 to 3 months. Patient denies any recent acute event. No reported fever or other constitutional symptoms otherwise. Patient Active Problem List Diagnosis Mild gingivitis Seasonal allergic rhinitis Acute otitis externa of left ear Anxiety Adjustment disorder with mixed anxiety and depressed mood Chest pain Acne vulgaris Hx of nummular eczema Current Outpatient Medications on File Prior to Visit Medication Sig Dispense Refill Cholecalciferol (Vitamin D) 50 MCG (1999 UT) capsule Take 1 capsule by mouth 1 (one) time each day.OTC cyanocobalamin (Vitamin B-12) 1000 MCG tablet Take 1 tablet by mouth in the morning. OTC fexofenadine (Eveline) 180 MG tablet Take 1 tablet (180 mg) by mouth if needed each day (Allergies). 30 tablet 3 hydrocortisone valerate (West-Michael) 0.2 % ointment Apply topically 2 times daily. 15 g 0 hydrOXYzine pamoate (Vistaril) 50 MG capsule Take 1 capsule (50 mg) by mouth every 6 (six) hours ifneeded for anxiety. 90 capsule 0 metroNIDAZOLE (Metrogel) 1 % gel Apply topically Once per day. 60 g 2 [place] 3-6-9 capsule sertraline (Zoloft) 50 MG tablet Take 1 tablet (50 mg) by mouth in the morning. 90 tablet 1 spironolactone (Aldactone) 100 MG tablet Take 1 tablet (100 mg) by mouth Once per day. 30 tablet 11 traZODone (Desyrel) 50 MG tablet Take 1 tablet (50 mg) by mouth at bedtime. 30 tablet 1 triamcinolone (Kenalog) 0.1 % ointment Apply topically 2 times daily. 30 g 0 No current facility-administered medications on file prior to visit. No Known Allergies Review of Systems Constitutional: Negative for appetite change, chills and diaphoresis. Eyes: Negative for pain and redness. Respiratory: Negative for cough, shortness of breath and stridor. Cardiovascular: Negative for palpitations and leg swelling. Gastrointestinal: Negative for anal bleeding and blood in stool. Musculoskeletal: Negative for gait problem, joint swelling and myalgias. Skin: Negative for rash. Objective BP 123/77 (BP Location: Left arm, Patient Position: Sitting, BP Cuff Size: Adult long) Pulse 98 Temp 97.3 ??F (36.3 ??C) (Oral) Resp 20 Ht 5' 2 (1.575 m) Wt 202 lb (91.6 kg) SpO2 98% BMI 36.95 kg/m?? Physical Exam Constitutional: General: She is not in acute distress. Appearance: Normal appearance. She is obese. She is not ill-appearing, toxic- appearing or diaphoretic. Cardiovascular: Rate and Rhythm: Normal rate. Pulmonary: Effort: Pulmonary effort is normal. Skin: Comments: Pulled hair test negative Scalp is noninflammatory, nonscaly Neurological: Mental Status: She is alert. Assessment/Plan Diagnoses and all orders for this visit: Hair loss - CBC auto differential; Future - TSH W/Reflex to FT4; Future - hCG, Total, Quantitative; Future - Comprehensive Metabolic Panel; Future - Minoxidil (Rogaine Womens) 5 % foam; To apply to the scalp daily at bedtime The differential diagnosis was discussed. The workup ordered will be reported to patient's when ready. Missed period - CBC auto differential; Future - TSH W/Reflex to FT4; Future - hCG, Total, Quantitative; Future - Comprehensive Metabolic Panel; Future documented in this encounter Plan of Treatment Scheduled Orders Name Type Priority Associated Diagnoses Orde r Schedule CBC auto differential Lab Routine Hair loss Missed period Expected: 11/05/2024 (Approximate), Expires: 11/05/2025 TSH W/Reflex to FT4 Lab Routine Hair loss Missed period Expected: 11/05/2024 (Approximate), Expires: 11/05/2025 hCG, Total, Quantitative Lab Routine Hair loss Missed period Expected: 11/05/2024 (Approximate), Expires: 11/05/2025 Comprehensive Metabolic Panel Lab Routine Hair loss Missed period Expected: 11/05/2024 (Approximate), Expires: 11/05/2025 documented as of this encounter Visit Diagnoses Diagnosis Hair loss- Primary Unspecified alopecia Missed period documented in this encounter Additional Health Concerns Assessment Noted Time PHQ-9 Depression Total Score: 15 07/21/ 023 1:39 PM EST documented as of this encounter Care Teams Level Vial Curvature Gauger Relationship Specialty Start Date End Date Latonia Batres MD [address] [place] [id number] PCP - General Internal Medicine 12/27/21 documented as of this encounter
--- OUTSIDE RECORDS SUMMARY | 2024-11-05 17:01 | XMS_ITS | Encounter Summary ---
Author Organization [employer] Address [address] [facility] 7 [place] [address] Care Team Providers Care House Cleaner Name Role Phone Latonia Batres MD Primary Care Provider [phone] Reason for Visit * Reason Onset Date Comments Appointment Request 11/05/2024 Encounter Details Date Type Department Care Team ([facility] st Contact Info) Description 11/05/[address] [facility] MEDICINE [address] [place] [address] Latonia Batres MD [address] [place] [address] Appointment Request Social History Tobacco Use Types Packs/Day Years [...] encounter Miscellaneous Notes * Telephone Encounter - Emir Sousa - 11/05/2024 10:43 AM EDT Pt would like to reschedule missed Derm visit with Dr Batres documented in this encounter Plan of Treatment Not on file documented as of this encounter Visit Diagnoses Not on filedocumented in this encounter Additional Health Concerns Assessment Noted Time PHQ-9 Depression Total Score: 15 023 1:39 PM EST documented as of this encounter Care Teams House Cleaner Relationship Specialty Start Date End Date Latonia Batres MD [address] [place] [phone] PCP - General Internal Medicine 12/27/21 documented as of this encounter
--- OUTSIDE RECORDS SUMMARY | 2024-11-05 17:01 | XMS_ITS | Clinical Summary ---
Author Organization [employer] Address [address] [place] [address] [address] [place] [address] Care Team Providers Care Farmworker Machine Name Role Phone Latonia Batres MD Primary Care Provider [phone] Allergies No known active allergies Medications * This document contains information received from the source organization and may not represent a complete record from that organization. Vershire 3-6-9 capsule Active sertraline (Zoloft) 50 MG tabletIndicatio ns:Anxiety Take 1 tablet (50 mg) by mouth in the morning. 90 tablet 1 3 Active traZODone (Desyrel) 50 MG tabletIndicatio ns:Anxiety Take 1 tablet (50 mg) by mouth at bedtime. 30 tablet 1 3 Active hydrOXYzine pamoate (Vistaril) 50 MG capsuleIndicati ons:Anxiety Take 1 capsule (50 mg) by mouth every 6 (six) hours if needed for anxiety. 90 capsule 3 Active Cholecalciferol (Vitamin D) 50 MCG (2000 UT) capsule Take 1 capsule by mouth 1 (one) time each day. OTC Active cyanocobalamin (Vitamin B-12) 1000 MCG tablet Take 1 tablet by mouth in the morning. OTC Active hydrocortisone valerate (West-Michael) 0.2 % ointmentIndicat ions:Allergic reaction, initial encounter Apply topically 2 times daily. 15 g 4 Active triamcinolone (Kenalog) 0.1 % ointmentIndicat ions:Hx of nummular eczema Apply topically 2 times daily. 30 g 4 Active fexofenadine (Eveline) 180 MG tabletIndicatio ns:Hx of nummular eczema,Allergic reaction, initial encounter Take 1 tablet (180 mg) by mouth if needed each day (Allergies). 30 tablet 3 4 Active spironolactone (Aldactone) 100 MG tabletIndicatio ns:Acne vulgaris Take 1 tablet (100 mg) by mouth Once per day. 30 tablet 11 4 07/06/20 25 Active metroNIDAZOLE (Metrogel) 1 % gelIndications: Rosacea Apply topically Once per day. 60 g 2 4 07/06/20 25 Active Minoxidil (Rogaine Womens) 5 % foamIndications :Hair loss To apply to the scalp daily at bedtime 60 g 5 Active Active Problems Problem Noted Date Diagnosed Date Acne vulgaris 06/09/2024 Hx of nummular eczema 06/09/2024 Chest pain 08/26/2023 Assessment & Plan (08/26/2023 4:24 PM EST): CP with movement, reviewed Xray and also EKG, likely pleuritis, improved with NSAID, continue supportive care. In terms of her PNA, she never took antibiotics like she should, did complete azithromycin, will send for completion of augment and to repeat CXR in 2-3 weeks. Also reviewed her labs, her hemoglobin was 11.5 and PLT high likely setting of sickness, send to repeat testing. Anxiety 07/21/2023 Assessment & Plan (07/21/2023 1:27 PM EST): Patient that presented visit with concerns of episodes of anxiety will be given medications to treat concern. Patient was advised to follow up with PCP. IN addition, patient will be sent for labs for further evaluation. Adjustment disorder with mixed anxiety and depre ssed mood 07/21/2023 Assessment & Plan (07/21/2023 2:00 PM EST): PROGRESS NOTE: ID: Glen is a 37 y.o. White straight-identified cis-female (pronouns she/her/hers) with previous documented hx of Anxiety No previous hx of MH services who presents for Depression. She verbalized Hx of trauma in childhood. Denies Hx of SI/HI/self harm. During IBH Consult Glen presenting with changes in sleep difficulty falling asleep, difficulty staying asleep , and restless, unsatisfying sleep, change in appetite or weight overeating, psychomotor agitation, trouble concentrating, thoughts of worthlessness or guilt, fatigue/loss of energy and excessive worry/anxiety, difficulty controlling worry, restless/keyed up/On edge, easily fatigued, difficulty concentrating/Mind going blank , irritability, and sleep disturbance difficulty falling asleep, difficulty staying asleep , and restless, unsatisfying sleep; for a period of 1 month, for all symptoms in the context of been the mother of 2 toddlers, working parts picker, lack of informal and formal supports. Dr. Petersen started on the following meds sertraline 50mg, trazadone 50mg and hydroxyzine 50mg. Patient declined interest in referral for Medication Management at the moment. Agreed to OP Ind. Therapy referral. PLAN: New/Additional Services needed: Off-site services for , Behavioral Health Integration Plan: External OP therapy referral , Patient Self Plan: Patient to utilize skills provided in intervention , Patient to reach out to [facility] team as needed, Comply with medication , and Patient to engage in OP therapy. Acute otitis externa of left ear 02/10/2023 Assessment & Plan (02/10/2023 2:29 PM EDT): No improvement on Augmentin. Will start on Levaquin and give short course of prednisone for swelling. Will resend corticosporin 3.5 drops. Seasonal allergic rhinitis 02/05/2023 Mild gingivitis 08/14/2022 Encounters Date Type Department Care Team Description 11/05/2024 3:45 PM EDT Office Visit [facility] [address] [place], [place] [id number] Latonia Batres MD Hair loss (Primary Dx); Missed period 11/05/2024 Travel 11/05/2024 Telephone [facility] MED[facility] [address] [place] [address] Latonia Batres MD Nurse Triage 11/05/2024 Telephone [facility] [address] [place] [address] Latonia Batres MD Appointment Request 10/05/2024 Telephone [facility] [address] [place] [address] Latonia Batres MD No Show 09/29/2024 Travel from Last 3 Months Immunizations Name Administration Dates Next Due HepB-CpG 09/01/2023 Pfizer Covid-19 Vaccine 12+ zackery-sucrose (Roman C ap) 08/31/2021 Tdap 10/09/2021 Social History Tobacco Use Types Packs/Day Years Used Date Smoking Tobacco: Never Passive Smoke Exposure: Never Smokeless Tobacco: Never Tobacco Cessation:Counseling Given: Not Answered Alcohol Use Standard Drinks/Week Comments Never 0 [...] Orientation Straight 06/03/2022 10 :35 AM EDT Last Filed Vital Signs Vital Sign Reading [...] Mass Index 36.95 11/05/2024 4:00 PM EDT Plan of Treatment Health Maintenance Due Date Last Done Comments Dental Oral Exam 1986 Dental X-Ray: Bitewings 1986 Dental X-Ray: Full Mouth 1986 HIV Screening 1986 SDOH Screening 1986 Alcohol/Substance Use Screening 1998 Family Planning (PISQ) 2001 Hepatitis C Screening 2004 Dental Prophylaxis 02/12/2023 08/14/2022 Depression Monitoring (PHQ-9) 01/20/2024 07/21/2023, 07/21/2023 COVID-19 Vaccine ( season) 2024 08/31/2021, 08/27/2021, 08/02/2021, Additional history exists Influenza Vaccine (#1) 2024 Cervical Cancer Screening 07/13/2024 HPV/Cotest 07/13/2024 07/13/2019 Pap Smear 07/13/2024 07/13/2019 Depression Screening 07/21/2024 07/21/2023, 07/21/20 23 Tobacco Screening 11/05/2025 11/05/2024 Lipid Panel 08/01/2028 08/01/2023 DTaP/Tdap/Td Vaccines (3 - Td or Tdap) 10/10/2031 10/09/2021, 12/15/2019 Zoster Vaccines (1 of 2) 2036 RSV Patients and Patients Aged 60 years or older (1 - 1-dose 75+ series) 2061 Hepatitis B Vaccines Completed 10/06/2023, 09/01/19 24 HIB Vaccines Aged Out No longer eligi ble based on patient's age to complete this topic HPV Vaccines Aged Out No longer eligi ble based on patient's age to complete this topic Hepatitis A Vaccines Aged Out No long er eligible based on patient's age to complete this topic IPV Vaccines Aged Out No longer eligi ble based on patient's age to complete this topic Meningococcal Vaccine Aged Out No jovon michelle eligible based on patient's age to complete this topic Pneumococcal Vaccine: Pediatrics (0 to 5 Years) and At-Risk Patients (6 to 49) Years) Aged Out No longer eligible based on patient's age to complete this topic RSV under 20 months Aged Out No longe r eligible based on patient's age to complete this topic Rotavirus Vaccines Aged Out No longer eligible based on patient's age to complete this topic Procedures Procedure Name Priority Date/Time Associated Diagnosis Comments LIPID PANEL, STANDARD Routine 08/01/2023 9:14 AM EST Anxiety Full PROPHYLAXIS - ADULT Routine 08/14/2022 8:00 AM EST HM PAP/HPV Routine 07/13/2019 from Last 3 Months or Most Recently Relevant to Health Maintenance Results * Lipid Panel, Standard (08/01/2023 9:14 AM EST) Triglycerides 93 <150 mg/dL [facility] Comment:Desirable Triglyceri de: less than 150 mg/dLBorderline High Triglyceride 150-199 mg/dLHigh Triglyceride: 200-499 mg/dLVery High Triglyceride: greater than or equal to 5OO mg/dL Cholesterol 162 <200 mg/dL [facility] Comment:Desirable Cholestero l: less than 200 mg/dLBorderline High Cholesterol: 200-239 mg/dLHigh Cholesterol: greater than 239 mg/dL LDL Cholesterol Calculated 97 <100 mg/dL [facility] Comment:Desirable LDL: less than 100 mg/dLNear Optimal/Above Optimal LDL: 110- 129 mg/dLBorderline High LDL: 130-159 mg/dLHigh LDL: 160-189 mg/dLVery High LDL: greater than or equal to 190 mg/dL HDL Cholesterol 47 >40 mg/dL [facility] Comment:Desirable HDL: great er than 40 mg/dL Note: This HDL assay may give artificially low results in patients with liver disease. Blood Venous blood specimen / Unknown 08/01/2023 9:14 AM EST 08/01/2023 2:26 PM EST us Olga Petersen MD LAB BLOOD ORDERABLES Final Re sult [facility] [address] [place] [phone] * Hm Pap Smear (07/13/2019) Pap Negative for intraephithelial lesion or malignancy Negative for intraephithelial lesion or malignancy, Other HPV Undetected Undetected, Indeterminate, Quantitative, Not Detected us Historical Provider HEALTH MAINTENANCE Final Result from Last 3 Months or Most Recently Relevant to Health Maintenance Insurance BCBS PPO [facility]ICA[place] STAND ADULT Care Teams Farmworker Machine Relationship Specialty Start Date End Date Latonia Batres MD [address] [place] [address] [place] [address] PCP - General Internal Medicine 12/27/21
--- OUTSIDE RECORDS SUMMARY | 2024-11-05 17:01 | XMS_ITS | Encounter Summary ---
Author Organization [facility] [employer] Address [address] [place] [address] 7 [place] [address] Care Team Providers Care Flag Maker Name Role Phone Latonia Batres MD Primary Care Provider [phone] Reason for Visit * Reason Onset Date Comments Nurse Triage 02/07/2023 Encounter Details Date Type Department Care Team ([facility] st Contact Info) Description 02/07/2023 Telephone [facility] [address] [place] [address] Latonia Batres MD [address] [place] [address] Nurse Triage Social History Tobacco Use Types Packs/Day Years Used Date Smoking Tobacco: Never Passive Smoke Exposure: Never Smokeless Tobacco: Never Alcohol Use Standard Drinks/Week Comments Never 0 (1 standard drink = 0.6 oz pur e alcohol) Depression Answer Date Recorded Patient Health Questionnaire-2 Score 0 01/08/2023 Comments Unknown Sex and Gender Information Value Date Recorded Sex Assigned at Female 06/03/2022 10:35 AM EDT Legal Sex Female 10:35 AM EDT Gender Identity Female 06/03/2022 10:35 AM EDT Sexual Orientation Straight 06/03/2022 10 :35 AM EDT COVID-19 Exposure Response Date Recorded In the last 10 days, have yo u been in contact with someone who was confirmed or suspected to have Coronavirus/COVID-19? No / Unsure 02/10/2023 1:41 PM EDT documented as of this encounter Miscellaneous Notes * Telephone Encounter - Apple Agudelo RN - 02/07/2023 3:32 PM EDT Triage call, information only. Pt was seen 02/05 for ear infection. Third day on antibiotics and reporting pain and congestion. Advised Pt to change from ibuprofen to tylenol for discomfort. Use ice onouter ear in wet wash cloth and on forehead for 20min. and sleep with head up on pillows for comfort and to facilitate drainage. Pt agreed no further questions and will call back Friday if symptoms not clearing. Pt agrees with disposition. Protocol Used: Information Only Call - No Triage (Adult) Protocol-Based Disposition: Home Care Positive Triage Question: * Information only question and nurse able to answer * All higher-acuity triage questions were negative Care Advice Discussed: * Reasons To Call Back - New symptoms develop - You become worse * Telephone Encounter - Hyun Garnica - 02/07/2023 3:18 PM EDT Symptom: Earache Outcome: Schedule an urgent appointment (within 1 hour) or talk to a nurse or provider soon Reason: Still in pain. States she is getting a pressure on the head The caller accepted this outcome Please contact pt at [phone] documented in this encounter Plan of Treatment Not on file documented as of this encounter Visit Diagnoses Not on filedocumented in this encounter Care Teams Flag Maker Relationship Specialty Start Date End Date Latonia Batres MD [address] [place] [id number] PCP - General Internal Medicine 12/27/21 documented as of this encounter
--- OUTSIDE RECORDS SUMMARY | 2024-11-05 17:01 | XMS_ITS | Data Portability ---
Author Organization [facility], [address] Address [address] [place] [address] Care Team Providers Care Wild Life Photographer Name Role Phone [facility] Primary Care Provider [phone] Assessment No assessment recorded. Plan of Treatment Reminders Order Date Submit Date Provider Last Modified By Organization Details Last Modified Time Details Appointments None record ed. Lab None record ed. Referral None record ed. Procedures None record ed. Surgeries None record ed. Imaging None record ed. Medication Orders neomyc in-rodrigo ymyxin -hydro marisol 3.5 mg-10, 000 unit/m L-1 % ear drops, susp 023 02/09/20 23 [id number], [address] [place], [address], 12:18:04 Patient TargetsNo targets recorded. Patient Instructions Encounter Date Encounter Id Patient Instructions Last Modified By Organization Details Last Modified Time 02/08/2023 [id number] earache: care instructions Not available 02/08/2023 12:18:02 ear infection (otitis media): care instructions Not available 02/08/2023 12:18:02 Water in the ear , from swimming or bathing, makes the ear canal prone to infection. Hot and humid weather also predisposes to infection. Symptoms of otitis externa include: ear pain, fullness or itching in the ear, ear drainage, and temporary loss of hearing. These symptoms are similar to those caused by otitis media (middle ear infection). To differentiate between external ear infection and middle ear infection, the provider looks in the ear with an instrument called an otoscope. It is important to distinguish between the two infections, as they are treated differently: External otitis is treated with drops in the ear canal, while middle ear infection is sometimes treated with an antibiotic by mouth. MEASURES YOU SHOULD TAKE TO HELP TREAT EXTERNAL EAR INFECTION: 1. Use the ear drops regularly, as directed on the prescription. 2. The purdy to treatment is getting the drops down into the canal and keeping the medicine there. To accomplish this: Lie on your side, with the unaffected ear down. Put three to four drops in the infected ear canal, then gently pull the outer ear back and forth several times, working the medicine deeper into the ear canal. Remain still, sirv-vev-flro-down for about 15 minutes. 3. Keep the ear as dry as possible. Swimming should be postponed until the infection has cleared. Try to avoid getting water in the ear when bathing. If water does get in the ear, the canal can be gently dried with a hair blow dryer. Use the low heat setting, and keep the blow dryer about six inches from the ear. 4. Copv-igu-szgldsh pain medications can relieve discomfort associated with external otitis. Acetaminophen (Tylenol), ibuprofen, or naproxen can be taken, depending on individual preference. 5. Return to the [facility] in about one week. The provider can check to make sure the infection has cleared, continue the medicine if needed, okay a return to swimming, etc. 6. To prevent repeated episodes of otitis externa, try to keep the ear canal dry. Gentle swabbing with Q-tips (never deep into the canal), along with a hair blow dryer (low heat), can be used to dry the ear canal if it gets wet. 7. Should you develop severe pain, fever, severe headache, or stiff neck, see your personal/referral doctor or go to the closest emergency department promptly. Otitis externa does not normally cause these symptoms; another problem, requiring different treatment, could be present Not available 02/08/2023 12:18:01 Reason for Referral None Reported. Problems No Known Problems Medical Equipment None Reported. Allergies No known drug allergies Medications Name Sig Start Date Stop Date Status Note LastModified by Organization Details LastModified Time ibuprofen 600 mg tablet TAKE 1 TABLET BY MOUTH THREE TIMES DAILY active Not Available Not Available No t Available loratadine 10 mg tablet TAKE 1 TABLET BY MOUTH EVERY DAY IN THE MORNING active Not Available Not Available No t Available amoxicillin 875 mg-potassiu m clavulanate 125 mg tablet TAKE 1 TABLET BY MOUTH TWICE A DAY FOR 7 DAYS active Not Available Not Available No t Available neomycin-po lymyxin-hyd rocort 3.5 mg-10,000 unit/mL-1 % ear drops,susp INSTILL 4 DROPS INTO AFFECTED EAR(S) BY OTIC ROUTE 3 TIMES PER DAY x 10 days. 2022 active Not Available Not Available Not Avai lable Vitamin B12 active Not Available Not A vailable Not Available diclofenac 1 % topical gel APPLY 2 GRAMS TOPICALLY TO AFFECTED AREA(S) THREE TIMES DAILY 02/08 completed Not Available Not Available Not Available omega 3 360 mg-dha 108 mg-epa 180 mg-fish oil 1,200 mg capsule Take by oral route. active Not Available Not Available No t Available Vitals Date Recorded Body height Body mass index (BMI) Body weight Pain severity - 0-10 verbal numeric rating [Score] - Reported Respiratory rate Oxygen saturation Oxygen saturation in Arterial blood by Pulse oximetry Heart rate Body temperature Systolic blood pressure Diastolic blood pressure Provider Name and Address Organization Details Last Updated DateTime 3 157.48 cm 38.6 kg/m2 39568.9 9 g 9 18 /min 98 % 98 % 115 /min 98.4 [degF] 126 mm[Hg] 91 mm[Hg] Imelda Ramirez [facility] 12:00:11 Social History Question Answer Notes LastModified by Organizat ion Details LastModified Time Tobacco Smoking Status Never Smoker CHARAN Chin [facility] 02/08/2023 11:58:59 What Is Your Level Of Alcohol Consumption? None Information not available 02/08/2023 Do You Use Any Illicit Or Recreational Drugs? No Information not available 02/08/2023 Have You Recently Traveled Abroad? No Information not available 02/08/2023 Do You Or Have You Ever Used Any Other Forms Of Tobacco Or Nicotine? No Information not available 02/08/2023 Sex: Unknown Functional Status None recorded. Mental Status None recorded. Family History Relationship Description Onset Age of this Age Resolved Age Notes LastModified by Organization Details LastModified Time Father Heart disease [email or web address] Not available 2022 11:58:27 Father Diabetes mellitus [email or web address] Not available 2022 11:58:51 Mother Hypercholest erolemia [email or web address] Not available 2022 11:58:34 Mother Arthritis [email or web address] Not availab le 02/08/2023 11:58:41 Medical History No medical history recorded. Gynecological History Statement/Question Response Date of LMP 02/08/2023 Is there any chance of ? No Obstetrics History GPAL:G 0 P 0 0 0 0 Past Encounters Encounter ID Performer Location Encounter Start Date Encounter Closed Date Diagnosis/Indication Diagnosis SNOMED-CT Code Diagnosis ICD10 Code Diagnosis Note [id number] [address] [place] [address] 04/03/2018 16:18:08 04/03/2018 17:16:10 [id number] [address] [place] [address] 02/26/2021 17:36:54 02/26/2021 19:35:40 [id number] [address] [place] [address] 06/04/2017 12:38:54 06/04/2017 13:06:58 [id number] Xavi Mccord NP [address] [place] [address] 02/08/2023 11:28:21 02/08/2023 12:40:32 Otitis externa of left ear 0099132658 [id number] H60.92 Health Concerns Section Related Observation LastModified by Organization Detai ls LastModified Time None Recorded Concern Status LastModified by Organization Details LastModified Time None Recorded Advance Directives Directive None Recorded Payers Encounter Date Sequence Insurance Name Policy Number Policy Lacey Covered Member ID Lacey Member ID Guarantor Name 02/26/2021 1 [place] [id number] 01 Kris Clinton [id number] Jose Saenz 02/26/2021 2 [place] Jose Saenz [id number] Jose Saenz 02/08/2023 1 [place] [id number] 01 Kris Clinton [id number] Jose Saenz 02/08/2023 2 [place] [facility] Jose Saenz [id number] Jose Saenz Notes Date Note Type Note Provider Name and Address Organization Details Recorded Time 02/08/2023 text/html Ear Pain Brief HPIReported bypatient.Location :left; tragus and/or pinna Onset/Timing:start ed 6days ago; constant pain; sudden onset Duration:occurs daily; constant pain Quality:no discharge from the ears; no burning;aching pain;sharp pain;itching Severity:getting worse; no fever; able to perform daily activities; no interference with sleep Context:no recent URI; no recent trauma; no recent swimming; no immunocompromise; no dental problems; no recent airplane travel; no scuba diving; non-smoker;recent ear infection Alleviating factors:warm compress Aggravating factors:cold weather; sinus infections; allergies Associated Symptoms:no cough; no jaw popping or clicking; No decreased appetite; no nasal discharge; no hearing loss; no sore throat; no dental pain; no tinnitus;discharge from ear;nasal congestion;sense of fullness/pressure; jaw pain; no decreased hearing; no muffled hearing Xavi Mccord NP [address] [place], [address], [place] - [facility] 02/08/2023 12:18:20 OBGyn Episode No OBEpisode recorded.
--- OUTSIDE RECORDS SUMMARY | 2024-11-05 17:01 | XMS_ITS | Encounter Summary ---
Author Organization [employer] Address [address] [place] [address] [address] [place] [address] Care Team Providers Care Mold Yard Crane Operator Name Role Phone Latonia Batres MD Primary Care Provider [phone] Encounter Details Date Type Department Care Team (Latest Contact Info) Description 11/05/2024 Travel Social History Tobacco Use Types Packs/Day Years [...] as of this encounter Plan of Treatment Not on file documented as of this encounter Visit Diagnoses Not on filedocumented in this encounter Additional Health Concerns Assessment Noted Time PHQ-9 Depression Total Score: 15 023 1:39 PM EST documented as of this encounter Care Teams Mold Yard Crane Operator Relationship Specialty Start Date End Date Latonia Batres MD [address] [facility] [place] [address] PCP - General Internal Medicine 12/27/21 documented as of this encounter
--- OUTSIDE RECORDS SUMMARY | 2024-11-05 17:01 | XMS_ITS | Encounter Summary ---
Author Organization [facility] Address [address] [place] [address] [address] [place] [address] Care Team Providers Care Race And Sports Book Writer Name Role Phone Latonia Batres MD Primary Care Provider [phone] Encounter Details Date Type Department Care Team (Latest Contact Info) Description 08/18/2019 Abstract [facility] CONVERSIONS Dental, Provider, DDS Social History Tobacco Use Types Packs/Day Years Used Date Smoking Tobacco: Never Assessed Comments Unknown Sex and Gender Information Value [...] on filedocumented in this encounter Care Teams Race And Sports Book Writer Relationship Specialty Start Date End Date Latonia Batres MD [address] [facility] [place] [address] PCP - General Internal Medicine 12/27/21 documented as of this encounter
--- OUTSIDE RECORDS SUMMARY | 2024-11-05 17:01 | XMS_ITS | Encounter Summary ---
Author Organization [employer] Address [address] [place] [address] 7 [place] [address] Care Team Providers Care Civil Cadd Technician Name Role Phone Latonia Batres MD Primary Care Provider [phone] Reason for Visit * Reason Onset Date Comments ER Follow-up 08/05/2023 Encounter Details Date Type Department Care Team ([facility] st Contact Info) Description 08/05/[address] [facility] CHC MED & PEDS [address] [place] [address] Latonia Batres MD [address] [place] [address] ER Follow-up Social History Tobacco Use Types Packs/Day Years [...] encounter Miscellaneous Notes * Telephone Encounter - Do Landers RN - 08/07/2023 11:39 AM EST called pt to triage, spoke to pt. pt states seen ER at [facility] on 08/04 and treated for Pneumonia. pt puton Azithromycin and a 10 day course of Augmentin. pt states persistent chest aching and upper back pain, sob with exertion, congestion, and mild cough with fatigue. pt also reports mild nausea without significant vomiting. pt speaking in partial sentences, pausing occasionally, and without audible distress. pt has appt scheduled on 08/14 and can speak to PCP regarding ER visit and any follow up needed and reschedule the follow up anxiety as needed. advised home care: rest, fluids, steam, humidifier, monitor temperature, continue and complete the antibiotics, Yogurt daily, light diet as tolerated, and call back if worsening or new concerns. advised to seek ER care if severe symptoms. pt understands and agrees with plan. no sooner appt available and nothing available today or tomorrow [facility]. ER records of 08/04 are in the chart for review. Protocol Used: Breathing Difficulty (Adult) Protocol-Based Disposition: See in Office or Video Visit within 2 Weeks Video visit offer not recorded Positive Triage Question: * Mild longstanding difficulty breathing (e.g., speaks in phrases, SOB even at rest, pulse 100-120)and same as normal * All higher-acuity triage questions were negative Care Advice Discussed: * Reasons To Call Back - Severe difficulty breathing occurs - Fever more than 100.4 F (38.0 C) - You become worse * Telephone Encounter - Hyun Garnica - 08/07/2023 10:24 AM EST Symptoms: Headache, Breathing Trouble Outcome: Schedule an urgent appointment (within 1 hour) or talk to a nurse or provider soon Reason: antibiotics give in ED is not helping pt feel better The caller accepted this outcome Please contact pt at [phone] * Telephone Encounter - Lizett Jones - 08/06/2023 8:36 AM EST Tc from pt returning call for EDF, States they are feeling weak, nausea, no appetite. Please see previous message. Please contact at [phone] * Telephone Encounter - Ededarin Borrero - 08/05/2023 4:29 PM EST Patient calling to report ED visit on : Date: 08/04/23 Hospital: [facility] Seen for: pneumonia Pt also stated they were advised to get referral from pcp [facility] intake specialist. documented in this encounter Plan of Treatment Not on file documented as of this encounter Visit Diagnoses Not on filedocumented in this encounter Additional Health Concerns Assessment Noted Time PHQ-9 Depression Total Score: 15 023 1:39 PM EST documented as of this encounter Care Teams Civil Cadd Technician Relationship Specialty Start Date End Date Latonia Batres MD [address] [place] [address] PCP - General Internal Medicine 12/27/21 documented as of this encounter
--- OUTSIDE RECORDS SUMMARY | 2024-11-05 17:01 | XMS_ITS | Encounter Summary ---
Author Organization [facility] Address [address] [place] [address] 7 [place] [address] Care Team Providers Care Transition Mgr Rn Name Role Phone Latonia Batres MD Primary Care Provider [phone] Encounter Details Date Type Department Care Team (Latest Contact Info) Description 09/13/2020 Abstract [facility] CONVERSIONS Dental, Provider, DDS Social History Tobacco [...] on filedocumented in this encounter Care Teams Transition Mgr Rn Relationship Specialty Start Date End Date Latonia Batres MD [address] [facility] [place] [address] PCP - General Internal Medicine 12/27/21 documented as of this encounter
--- OUTSIDE RECORDS SUMMARY | 2024-11-05 17:01 | XMS_ITS | Encounter Summary ---
Author Organization [employer] [facility] Address [address] [place] [address] 7 [place] [address] Care Team Providers Care Elevator Constructor Supervisor Name Role Phone Latonia Batres MD Primary Care Provider [phone] Encounter Details Date Type Department Care Team (Latest Contact Info) Description 01/09/2022 Abstract [facility] CONVERSIONS Dental, Provider, DDS Social History Tobacco [...] on filedocumented in this encounter Care Teams Elevator Constructor Supervisor Relationship Specialty Start Date End Date Latonia Batres MD 505 [facility] [place] [address] PCP - General Internal Medicine 12/27/21 documented as of this encounter
--- OUTSIDE RECORDS SUMMARY | 2024-11-05 17:01 | XMS_ITS | Encounter Summary ---
Author Organization [employer] Address [address] [place] [address] 7 [place] [address] Care Team Providers Care Estate Attorney Name Role Phone Latonia Batres MD Primary Care Provider [phone] Reason for Visit * Reason Onset Date Comments Nurse Triage 08/05/2023 Encounter Details Date Type Department Care Team ([facility] st Contact Info) Description 08/05/2023 Telephone [facility] CHC MED & PEDS [address] [place] [address] Latonia Batres MD [address] [place] [address] Nurse Triage Social History Tobacco Use Types [...] Telephone Encounter - Do Landers RN - 08/05/2023 4:00 PM EST called pt to triage, spoke to pt. pt states seen ER at [facility] on Friday and diagnosed with Pneumonia. pt states taking course of Azithromycin and Amoxicillin for 10 days. pt states having chest pain, and sob, however very little cough or congestion. pt denies known high fevers, rash, severe or sustai nikki sob, vomiting, or other associated symptoms pt has appt already scheduled on 08/14 and is advised to keep that appt and speak to PCP at that time. advised home care: rest, fluids, continue and complete the antibiotics, steam, humidifier, and call back if worsening or new concerns. pt understandsand agrees with plan. insurance verified. Protocol Used: Pneumonia Follow-Up Call (Pediatric) Protocol-Based Disposition: Home Care Positive Triage Question: * Bacterial pneumonia and reasonable improvement on antibiotic * All higher-acuity triage questions were negative Care Advice Discussed: * Reassurance and Education - Bacterial Pneumonia * Continue the Antibiotic * Fever Medicine * Homemade Cough Medicine - 6 Months and Older * Coughing Fits or Spells - Warm Mist and Fluids * Avoid DM * Humidifier * Avoid Tobacco Smoke * Nasal Saline to Open a Blocked Nose * Reasons To Call Back - Fever lasts over 48 hours on antibiotics - Breathing becomes difficult - Breathing not back to normal by 1 week - Your child becomes worse * Telephone Encounter - Rudi Padilla - 08/05/2023 3:10 PM EST Symptom: Diarrhea Outcome: Schedule an urgent appointment (within 1 hour) or talk to a nurse or provider soon Reason: Vomiting The caller accepted this outcome Please contact pt @ [phone] documented in this encounter Plan of Treatment Not on file documented as of this encounter Visit Diagnoses Not on filedocumented in this encounter Additional Health Concerns Assessment Noted Time PHQ-9 Depression Total Score: 15 07/21/2 023 1:39 PM EST documented as of this encounter Care Teams Estate Attorney Relationship Specialty Start Date End Date Latonia Batres MD [address] [place] [address] PCP - General Internal Medicine 12/27/21 documented as of this encounter
[2024-11-05 17:43] LABS: MANUAL DIFF FLAG NO
[2024-11-05 17:57] LABS: Basophils Absolute Auto 0.1 X10*3/uL (0.0-0.2); Basophils Percent Auto 0.6 % (0-2); Eosinophils Absolute Auto 0.2 X10*3/uL (0.0-0.4); Eosinophils Percent Auto 2.1 % (0-4); Hematocrit 39.2 % (37.0-47.0); Hemoglobin 12.6 g/dl (12.0-16.0); Imm Gran Abs Auto 0.05 X10*3/uL (0.00-0.03); Imm Gran Pct Auto 0.5 % (0.0-0.4); Lymphocytes Absolute Auto 3.2 X10*3/uL (1.2-4.9); Lymphocytes Percent Auto 29.9 % (20-40); Mean Corpuscular HGB Conc 32.1 g/dl (31.0-35.0); Mean Corpuscular Hemoglobin 27.3 pg (27.0-33.0); Monocytes Absolute Auto 0.6 X10*3/uL (0.1-1.2); Neutrophils Absolute Auto 6.5 x10*3/uL (2.0-8.3); Neutrophils Percent Auto 60.9 % (45-73); Platelet Count 308 X10*3/uL (160-400); Red Blood Count 4.61 X10*6/uL (4.20-5.50); White Blood Count 10.7 X10*3/uL (4.8-10.8)
[2024-11-05 18:19] LABS: Alanine Aminotransferase 14 U/L (0-31); Albumin Level 3.6 g/dL (3.5-5.0); Alkaline Phosphatase 84 U/L (39-117); Anion Gap 12 (12-20); Aspartate Amino Transferase 14 U/L (5-31); Bilirubin Total 0.2 mg/dL (0.0-1.0); Blood Urea Nitrogen 21 mg/dL (9-16); Calcium 8.7 mg/dL (8.4-10.2); Carbon Dioxide 26 mmol/L (22-29); Chloride 107 mmol/L (96-108); Estimated Glomerular Filt Rate > 60; Glucose Random 130 mg/dL (60-115); Potassium 3.5 mmol/L (3.3-5.1); Sodium 141 mmol/L (135-145); Total Protein 6.7 g/dL (6.5-8.0)
[2024-11-05 18:35] LABS: HCG Quantitative < 2 mIU/mL; TSH reflex Free T4 2.45 uIU/mL (0.32-4.0)
== END 2024-11-05 16:15 | disposition home or self-care (01) ==
LOC: HO.CHCLDS 16:14
PROVIDERS: Visit Provider Internal Medicine
DX: L65.9 Nonscarring hair loss, unspecified (principal); N92.6 Irregular menstruation, unspecified
CPT/HCPCS: 36415; 80053; 84443; 84702; 85025

== ENCOUNTER 2024-12-14 14:03 | Outpatient (REF) | payer BC, SELFPAY ==
--- NOTE | ~2024-12-14 | US_ITS ---
CLINICAL HISTORY: Please r o PCOS, uterine fibroids, MISSED PERIOD US pelvis transabdominal and transvaginal with Doppler Comparison: None Findings: Transabdominal scanning performed for overall anatomy. Transvaginal scanning performed for additional detail. Anteverted uterus is 8.4 cm length. Normal myometrium. Endometrium 5 mm thickness. Right ovary 3.7 x 2.7 x 3.1 cm. Left ovary 3.4 x 2.0 x 1.6 cm. Follicular cyst within the bilateral ovaries. Normal color Doppler with arterial/venous spectral tracing of both ovaries. No free fluid. IMPRESSION: 1. Normal pelvic ultrasound with Doppler. No evidence of ovarian torsion. This document has been electronically signed by: Ricardo Roque MD on 12/14/2024 19:09:40
--- OUTSIDE RECORDS SUMMARY | 2024-12-14 15:13 | XMS_ITS | Encounter Summary ---
Author Organization [employer] Address [address] [place] [address] Care Team Providers Care Teller Vault Name Role Phone Latonia Batres MD Primary Care Provider [phone] Reason for Referral * Imaging (Routine) - Closed Specialty Diagnoses / Procedures Referred By Tran lockett Referred To Contact Radiology Diagnoses Missed period Procedures US Pelvis Transabdominal Latonia Batres MD [address] [place] [address] Phone: tel: fax: [address] Phone: tel: fax: Referral ID Status Reason Start Date Expiration Date Visits Re quested Visits Authorized [id number] Closed 2024 2025 1 1 * Imaging (Routine) - Canceled Specialty Diagnoses / Procedures Referred By Tran lockett Referred To Contact Radiology Diagnoses Missed period Procedures US Pelvis Transvaginal Latonia Batres MD [address] [place] [address] Phone: tel: fax: [address] Phone: tel: fax: Referral ID Status Reason Start Date Expiration Date V isits Requested Visits Authorized [id number] Canceled 11/08/2024 11/08/2025 1 1 Encounter Details Date Type Department Care Team (Late Contact Info) Description 11/08/2024 Orders Only [facility] ED MED & PEDS [address] [place] [address] Latonia Batres MD [address] [place] [address] Missed period (Primary Dx) Social History Tobacco Use Types [...] as of this encounter Plan of Treatment Upcoming Encounters Date Type Department Care Team (Late Contact Info) Description 12/21/2024 11:15 AM EDT Office Visit [facility] ED MED & PEDS [address] [place] [address] Latonia Batres MD [address] [place] [address] Scheduled Orders Name Type Priority Associated Diagnoses Orde r Schedule Prolactin, Dilution Study Lab Routine Missed period Expected: 11/08/2024 (Approximate), Expires: 11/08/2025 US Pelvis Transvaginal Imaging Routine Missed period Expected: 11/08/2024, Expires: 11/08/2025 US Pelvis Transabdominal Imaging Routine Missed period Expected: 2024 (Approximate), Expires: 11/18/2025 documented as of this encounter Visit Diagnoses Diagnosis Missed period- Primary documented in this encounter Additional Health Concerns Assessment Noted Time PHQ-9 Depression Total Score: 15 023 1:39 PM EST documented as of this encounter Care Teams Teller Vault Relationship Specialty Start Date End Date Latonia Batres MD [address] [place] [address] PCP - General Internal Medicine 12/27/21 documented as of this encounter
--- OUTSIDE RECORDS SUMMARY | 2024-12-14 15:13 | XMS_ITS | Encounter Summary ---
Author Organization [employer] Address [address] [place] [address] 7 [place] [address] Care Team Providers Care Bill Sorter Name Role Phone Latonia Batres MD Primary Care Provider [phone] Reason for Referral * Imaging (Routine) - Closed Specialty Diagnoses / Procedures Referred By Contac t Referred To Contact Radiology Diagnoses Missed period Procedures Us Pelvis complete Latonia Batres MD [address] [place] [address] Phone: tel: fax: [address] Phone: tel: fax: Referral ID Status Reason Start Date Expiration Date Visits Re quested Visits Authorized [id number] Closed 11/24/2024 11/24/2025 1 1 Encounter Details Date Type Department Care Team (Late st Contact Info) Description 11/24/2024 Orders Only [facility] CHC MED & PEDS [address] [place], [place] [phone] Latonia Batres MD [address] [place], [place] [phone] Missed period (Primary Dx) Social History Tobacco [...] Encounters Date Type Department Care Team (Late st Contact Info) Description 12/21/2024 11:15 AM EDT Office Visit [facility] MED & PEDS [address] [place] [address] Latonia Batres MD [address] [place] [address] Scheduled Orders Name Type Priority Associated Diagnoses Orde r Schedule Us Pelvis complete Imaging Routine Missed period Expected: 11/24/2024, Expires: 11/24/2025 documented as of this encounter Visit Diagnoses Diagnosis Missed period- Primary documented in this encounter Additional Health Concerns Assessment Noted Time PHQ-9 Depression Total Score: 15 023 1:39 PM EST documented as of this encounter Care Teams Bill Sorter Relationship Specialty Start Date End Date Latonia Batres MD [address] [place] [address] PCP - General Internal Medicine 12/27/21 documented as of this encounter
--- OUTSIDE RECORDS SUMMARY | 2024-12-14 15:13 | XMS_ITS | Encounter Summary ---
Author Organization [employer] Address [address] [facility] 7 [place] [address] Care Team Providers Care Structural Design Engineer Name Role Phone Latonia Batres MD Primary Care Provider [phone] Reason for Visit * Reason Onset Date Comments Nurse Triage 08/26/2023 Encounter Details Date Type Department Care Team ([facility] st Contact Info) Description 08/26/2023 Telephone [facility] MEDICINE [address] [place] [address] Latonia Batres MD [address] [place] [address] Nurse Triage Social History Tobacco Use Types [...] reports having recently been in hospital , [facility], discharged 08/17/23 for pneumonia andpericarditis. Pt [...] and possible pneumonia again. Pt is given [facility] [address] today to be seen by [...] documented in this encounter Plan of Treatment Upcoming Encounters Date Type Department Care Team (Late st Contact Info) Description 12/21/2024 11:15 AM EDT Office Visit [facility] MED & PEDS [address] [place], [place] [phone] Latonia Batres MD [address] [place], [place] [phone] documented as of this encounter Visit Diagnoses Not on filedocumented in this encounter Additional Health Concerns Assessment Noted Time PHQ-9 Depression Total Score: 15 023 1:39 PM EST documented as of this encounter Care Teams Structural Design Engineer Relationship Specialty Start Date End Date Latonia Batres MD [address] [place] [address] PCP - General Internal Medicine 12/27/21 documented as of this encounter
--- OUTSIDE RECORDS SUMMARY | 2024-12-14 15:14 | XMS_ITS | Encounter Summary ---
Author Organization [employer] Address [address] [place] [address] 7 [place] [address] Care Team Providers Care Foster Winder Name Role Phone Latonia Batres MD Primary Care Provider [phone] Reason for Visit * Reason Onset Date Comments Nurse Triage 02/07/2023 Encounter Details Date Type Department Care Team ([facility] st Contact Info) Description 02/07/2023 Telephone [facility] CHC MED & PEDS [address] [place] [address] Latonia Batres MD [address] [place] [address] Nurse Triage Social History Tobacco Use Types [...] accepted this outcome Please contact pt at [phone] documented in this encounter Plan of Treatment Upcoming Encounters Date Type Department Care Team (Late st Contact Info) Description 12/21/2024 11:15 AM EDT Office Visit [facility] MED & PEDS [address] [place] [address] Latonia Batres MD [address] [place] [address] documented as of this encounter Visit Diagnoses Not on filedocumented in this encounter Care Teams Foster Winder Relationship Specialty Start Date End Date Latonia Batres MD [address] [place] [address] PCP - General Internal Medicine 12/27/21 documented as of this encounter
--- OUTSIDE RECORDS SUMMARY | 2024-12-14 15:14 | XMS_ITS | Data Portability ---
Author Organization [facility], [id number] Address [address] [place] [address] Care Team Providers Care Lime Spreader Name Role Phone [facility] Primary Care Provider [phone] Assessment No assessment recorded. Plan of Treatment [...] % ear drops, susp 023 02/09/20 23 [facility][id number], [address] [place], [address], 12:18:04 Patient TargetsNo targets recorded. Patient Instructions Encounter Date Encounter Id Patient Instructions Last Modified By Organization Details Last Modified Time 02/08/2023 [id number] earache: care instructions Not available 02/08/2023 12:18:02 [...] deeper into the ear canal. Remain still, nfgi-upf-cjky-down for about 15 minutes. 3. Keep the [...] about six inches from the ear. 4. Ffat-xmb-lcsemrd pain medications can relieve discomfort associated with external otitis. Acetaminophen (Tylenol), ibuprofen, or naproxen can be taken, depending on individual preference. 5. Return to the [facility] in about one week. The provider can [...] and Address Organization Details Last Updated DateTime 157.48 cm 38.6 kg/m2 33683.9 9 g 9 18 /min 98 % 98 % 115 /min 98.4 [degF] 126 mm[Hg] 91 mm[Hg] Imelda FARRAR [employer] 12:00:11 Social History Question Answer Notes LastModified by [employer] Details LastModified Time Tobacco Smoking Status Never Smoker CHARAN [facility] [employer] 02/08/2023 11:58:59 Have You Recently Traveled Abroad? No Information not available 02/08/2023 Sex: Unknown Functional Status Question Answer Note LastModified by [employer] Details LastModified Time Do you use any illicit or recreational drugs? No Information not available 02/08/2023 Do you or have you ever used any other forms of tobacco or nicotine? No Information not available 02/08/2023 What is your level of alcohol consumption? None Information not available 02/08/2023 Mental Status None recorded. Family History Relationship [...] SNOMED-CT Code Diagnosis ICD10 Code Diagnosis Note [id number] [address] [place] [address] 04/03/2018 16:18:08 04/03/2018 17:16:10 [id number] [address] [place] [address] 02/26/2021 17:36:54 02/26/2021 19:35:40 [id number] [address] [place] [address] 06/04/2017 12:38:54 06/04/2017 13:06:58 [id number] Xavi Mccord NP [address] [place] [address] 02/08/2023 11:28:21 02/08/2023 12:40:32 Otitis externa of left ear [id number] 549190 H60.92 Health Concerns Section Related Observation LastModified by Organization Detai ls LastModified Time None Recorded Concern Status LastModified by Organization Details LastModified Time None Recorded Advance Directives Directive None Recorded Payers Insurance Date Sequence Insurance Name Policy Number Policy Lacey Covered Member ID Lacey Member ID Guarantor Name 02/08/2023 1 [place] [id number] Kris Clinton [id number] Jose Saenz 02/08/2023 2 [place] [facility] Jose Saenz [id number] Jose Saenz Notes Date Note Type Note [...] no muffled hearing Xavi Mccord NP [address] [place], [address], [place] - [employer] 02/08/2023 12:18:20 OBGyn Episode No OBEpisode recorded.
--- OUTSIDE RECORDS SUMMARY | 2024-12-14 15:14 | XMS_ITS | Encounter Summary ---
Author Organization [employer] Address [address] [facility] 7 [place] [address] Care Team Providers Care Service Crew Supervisor Name Role Phone Latonia Batres MD Primary Care Provider [phone] Reason for Visit * Reason Onset Date Comments Appointment Request 11/05/2024 Encounter Details Date Type Department Care Team ([facility] st Contact Info) Description 11/05/2024 Telephone [facility] MEDICINE [address] [place] [address] Latonia Batres MD [address] [place] [address] Appointment Request Social History Tobacco Use Types [...] Upcoming Encounters Date Type Department Care Team ([facility] st Contact Info) Description 12/21/2024 11:15 AM EDT Office Visit [facility] MED & PEDS [address] [place] [address] Latonia Batres MD [address] [place] [address] documented as of this encounter Visit Diagnoses Not on filedocumented in this encounter Additional Health Concerns Assessment Noted Time PHQ-9 Depression Total Score: 15 023 1:39 PM EST documented as of this encounter Care Teams Service Crew Supervisor Relationship Specialty Start Date End Date Latonia Batres MD [address] [place] [address] PCP - General Internal Medicine 12/27/21 documented as of this encounter
--- OUTSIDE RECORDS SUMMARY | 2024-12-14 15:14 | XMS_ITS | Encounter Summary ---
Author Organization [employer] Address [address] [place] [address] 7 [place] [address] Care Team Providers Care Child And Family Counselor Name Role Phone Latonia Batres MD Primary Care Provider [phone] Reason for Visit * Reason Onset Date Comments ER Follow-up 08/05/2023 Encounter Details Date Type Department Care Team ([facility] Contact Info) Description 08/05/2023 Telephone [facility] CHC MED & PEDS [address] [place] [address] Latonia Batres MD [address] [place] [address] ER Follow-up Social History Tobacco Use Types [...] to pt. pt states seen ER [place] [facility] on 08/04 and treated for Pneumonia. pt [...] and nothing available today or tomorrow in [facility]. ER records of 08/04 are in the [...] accepted this outcome Please contact pt at [phone] * Telephone Encounter - Lizett Jones - 08/06/2023 8:36 AM EST Tc from pt returning call for EDF, States they are feeling weak, nausea, no appetite. Please see previous message. Please contact at [phone] * Telephone Encounter - Ede Adair - 08/05/2023 4:29 PM EST Patient calling to report ED visit on : Date: 08/04/23 Hospital: [facility] Seen for: pneumonia Pt also stated they were advised to get referral from pcp for [facility] component assembler. documented in this encounter Plan of Treatment Upcoming Encounters Date Type Department Care Team (Late st Contact Info) Description 12/21/2024 11:15 AM EDT Office Visit [facility] MED & PEDS [address] [place] [address] Latonia Batres MD [address] [place] [address] documented as of this encounter Visit Diagnoses Not on filedocumented in this encounter Additional Health Concerns Assessment Noted Time PHQ-9 Depression Total Score: 15 07/21/ 023 1:39 PM EST documented as of this encounter Care Teams Child And Family Counselor Relationship Specialty Start Date End Date Latonia Batres MD [address] [place] [address] PCP - General Internal Medicine 12/27/21 documented as of this encounter
--- OUTSIDE RECORDS SUMMARY | 2024-12-14 15:14 | XMS_ITS | Clinical Summary ---
Author Organization [employer] Address [address] [facility] 7t [place] [address] Care Team Providers Care Music Adapter Name Role Phone Latonia Batres MD Primary Care Provider +1 [phone] Allergies No known active allergies Medications * This document contains information received from the source organization and may not represent a complete record from that organization. [place] 3-6-9 capsule Active sertraline (Zoloft) 50 MG [...] been the mother of 2 toddlers, working inspector machined parts, lack of informal and formal supports. Dr. [...] intervention , Patient to reach out to [facility] team as needed, Comply with medication , and Patient to engage in OP therapy. Acute otitis externa of left ear 02/10/2023 Assessment & Plan (02/10/2023 2:29 PM EDT): No improvement on Augmentin. Will start on Levaquin and give short course of prednisone for swelling. Will resend corticosporin 3.5 drops. Seasonal allergic rhinitis 02/05/2023 Mild gingivitis 08/14/2022 Encounters Date Type Department Care Team Description 11/24/2024 Orders Only [facility] MED & PEDS [address] [place], [place] [phone] Latonia Batres MD Missed period (Primary Dx) 11/24/2024 Telephone [employer] Information Management [address] [place] [address] Latonia Batres MD 11/18/2024 Telephone [employer] Information Management [address] [place] [address] Latonia Batres MD TRANSVAGINAL ORDER 11/12/2024 Telephone [facility] MED & PEDS [address] [place] [address] Latonia Batres MD Appointment Request 11/08/2024 Orders Only [facility] MED & PEDS [address] [place] [address] Latonia Batres MD Missed period (Primary Dx) 11/05/2024 3:45 PM EDT Office Visit [facility] MED & PEDS [address] [place] [address] Latonia Batres MD Hair loss (Primary Dx); Missed period 11/05/2024 Travel 11/05/[address] [address] Latonia Batres MD Nurse Triage 11/05/[address] [phone] Latonia Batres MD Appointment Request 10/05/2024 Telephone [facility] MED & PEDS [address] [place], [place] [phone] Latonia Batres MD No Show 09/29/2024 Travel [...] 11/05/2024 4:00 PM EDT Plan of Treatment Upcoming Encounters Date Type Department Care Team ([facility] st Contact Info) Description 12/21/2024 11:15 AM EDT Office Visit [facility] MED & PEDS [address] [place] [address] Latonia Batres MD [address] [place] [address] Health Maintenance Due Date Last Done Comments Dental Oral Exam 1986 Dental X-Ray: Bitewings 1986 Dental X-Ray: Full Mouth 1986 HIV Screening 1986 SDOH Screening 1986 Alcohol/Substance Use Screening 1998 Family Planning (PISQ) 2001 Hepatitis C Screening 2004 Dental Prophylaxis 02/12/2023 08/14/2022 COVID-19 Vaccine ( season) 2024 08/31/2021, 08/27/2021, [...] Procedure Name Priority Date/Time Associated Diagnosis Comments COMPREHENSIVE METABOLIC PANEL Routine 11/05/2024 4:16 PM EDT Hair loss Missed period HCG, TOTAL, QN Routine 11/05/2024 4:16 PM EDT Hair loss Missed period TSH W/REFLEX TO FT4 Routine 11/05/2024 4 :16 PM EDT Hair loss Missed period CBC WITH AUTO DIFFERENTIAL Routine 11/05/2024 4:16 PM EDT Hair loss Missed period LIPID PANEL, STANDARD Routine 08/01/2023 9:14 AM EST Anxiety Full PROPHYLAXIS - ADULT Routine 08/14/2022 8:00 AM EST HM PAP/HPV Routine 07/13/2019 from Last 3 Months or Most Recently Relevant to Health Maintenance Results * TSH W/Reflex to FT4 (11/05/2024 4:16 PM EDT) Pathologist [facility] TSH reflex Free T4 2.45 0.32 - 4.0 uIU/mL [facility] Blood Venous blood specimen / Unknown 11/05/2024 4:16 PM EDT 11/05/2024 5:41 PM EDT us Latonia Batres MD LAB BLOOD ORDERABLES Final Result [facility] [address] [place] [phone] * (ABNORMAL) CBC auto differential (11/05/2024 4:16 PM EDT) Pathologist [facility] White Blood Count 10.7 4.8 - 10.8 X10*3/uL [facility] Red Blood Count 4.61 4.20 - 5.50 X10*6/uL [facility] Hemoglobin 12.6 12.0 - 16.0 g/dl [facility] Hematocrit 39.2 37.0 - 47.0 % [facility] Mean Corpuscular Volume 85.0 80.0 - 98.0 fL [facility] Mean Corpuscular Hemoglobin 27.3 27.0 - 33.0 pg [facility] Mean Corpuscular HGB Conc 32.1 31.0 - 35.0 g/dl [facility] Red Cell Distribution Width 14.0 11.0 - 16.0 % [facility] Platelet Count 308 160 - 400 X10*3/uL [facility] Mean Platelet Volume 11.0 9.4 - 12.3 fL [facility] Neutrophils Percent Auto 60.9 45 - 73 % [facility] Imm Gran Pct Auto 0.5(H) 0.0 - 0.4 % [facility] Lymphocytes Percent Auto 29.9 20 - 40 % [facility] Monocytes Percent Auto 6.0 2 - 11 % [facility] Eosinophils Percent Auto 2.1 0 - 4 % [facility] Basophils Percent Auto 0.6 0 - 2 % [facility] NRBC Pct Auto 0.0 0.0 - 0.2 /100WBC [facility] Neutrophils Absolute Auto 6.5 2.0 - 8.3 x10*3/uL [facility] Imm Gran Abs Auto 0.05(H) 0.00 - 0.03 X10*3/uL [facility] Lymphocytes Absolute Auto 3.2 1.2 - 4.9 X10*3/uL [facility] Monocytes Absolute Auto 0.6 0.1 - 1.2 X10*3/uL [facility] Eosinophils Absolute Auto 0.2 0.0 - 0.4 X10*3/uL [facility] Basophils Absolute Auto 0.1 0.0 - 0.2 X10*3/uL [facility] NRBC Abs Auto 0.000 0.0 - 0.012 X10*3/uL [facility] Blood Venous blood specimen / Unknown 11/05/2024 4:16 PM EDT 11/05/2024 5:41 PM EDT us Latonia Batres MD LAB BLOOD ORDERABLES Final Result [facility] [address] [place] [address] [phone] * hCG, Total, Quantitative (11/05/2024 4:16 PM EDT) HCG Quantitative <2 mIU/mL [facility] Comment:Weeks post LMP Appro ximate hCG(Last Menstrual Period) Range (mIU/ml)3 - 4 weeks 9 - 1304 - 5 weeks 75 - 2,6005 - 6 weeks 850 - 20,8006 - 7 weeks 4000 - 100,2007 - 12 weeks 11,500 - 289,05193 - 16 weeks 18,300 - 137,95111 - 29 weeks (2nd trimester) 1,400 - 53,78212 - 41 weeks (3rd trimester) 940 - 60,000The Golden B- hCG assay is used for the early detection ofpregnancy; it cannot be used to diagnose any conditionunrelated to . If a B-hCG level is not supportedby the clinical evidence, results should be confirmed by analternative method (qualitative urine hCG, for example). Blood Venous blood specimen / Unknown 11/05/2024 4:16 PM EDT 11/05/2024 5:41 PM EDT us Latonia Batres MD LAB BLOOD ORDERABLES Final Result [facility] [address] [place] [phone] [phone] * (ABNORMAL) Comprehensive Metabolic Panel (11/05/2024 4:16 PM EDT) Sodium 141 135 - 145 mmol/L [facility] Potassium 3.5 3.3 - 5.1 mmol/L [facility] Chloride 107 96 - 108 mmol/L [facility] Carbon Dioxide 26 22 - 29 mmol/L [facility] Anion Gap 12 12 - 20 [facility] Urea Nitrogen (BUN) 21(H) 9 - 16 mg/dL [facility] Creatinine, Serum 0.75 0.5 - 1.4 mg/dL [facility] Estimated Glomerular Filt Rate >60 [facility] Comment:Chronic Kidney Disea se: Estimated GFR < 60 mL/min/1.87w3Fohwyg Kidney Disease: Estimated GFR < 15 mL/min/1.73m2 Glucose 130(H) 60 - 115 mg/dL [facility] Calcium 8.7 8.4 - 10.2 mg/dL [facility] Bilirubin, Total 0.2 0.0 - 1.0 mg/dL [facility] Aspartate Amino Transferase 14 5 - 31 U/L [facility] Alanine Aminotransferase 14 0 - 31 U/L [facility] Total Protein 6.7 6.5 - 8.0 g/dL [facility] Albumin Level 3.6 3.5 - 5.0 g/dL [facility] Alkaline Phosphatase 84 39 - 117 U/L [facility] Blood Venous blood specimen / Unknown 11/05/2024 4:16 PM EDT 11/05/2024 5:41 PM EDT us Latonia Batres MD LAB BLOOD ORDERABLES Final Result Performing Organization Address [facility] Co de Phone Number [facility] [address] [place] [address] [phone] * Lipid Panel, Standard (08/01/2023 9:14 AM EST) Triglycerides 93 <150 mg/dL [facility] Comment:Desirable Triglyceri de: less than 150 mg/dLBorderline High Triglyceride 150-199 mg/dLHigh Triglyceride: 200-499 mg/dLVery High Triglyceride: greater than or equal to 5OO mg/dL Cholesterol 162 <200 mg/dL [facility] Comment:Desirable Cholestero l: less than 200 mg/dLBorderline High Cholesterol: 200-239 mg/dLHigh Cholesterol: greater than 239 mg/dL LDL Cholesterol Calculated 97 <100 mg/dL [facility] Comment:Desirable LDL: less than 100 mg/dLNear Optimal/Above Optimal LDL: 110- 129 mg/dLBorderline High LDL: 130-159 mg/dLHigh LDL: 160-189 mg/dLVery High LDL: greater than or equal to 190 mg/dL HDL Cholesterol 47 >40 mg/dL [facility] Comment:Desirable HDL: great er than 40 mg/dL Note: This HDL assay may give artificially low results in patients with liver disease. Blood Venous blood specimen / Unknown 08/01/2023 9:14 AM EST 08/01/2023 2:26 PM EST us Olga Petersen MD LAB BLOOD ORDERABLES Final Re sult Performing Organization Address [facility] Co de Phone Number [facility] [address] [place] [phone] * Hm Pap Smear (07/13/2019) Pap Negative for intraephithelial lesion or malignancy Negative for intraephithelial lesion or malignancy, Other HPV Undetected Undetected, Indeterminate, Quantitative, Not Detected us Historical Provider HEALTH MAINTENANCE Final Result from Last 3 Months or Most Recently Relevant to Health Maintenance Insurance [facility] STAND ADULT Care Teams Music Adapter Relationship Specialty Start Date End Date Latonia Batres MD [address] [place] [address] Y[place] [address] PCP - General Internal Medicine 12/27/21
--- OUTSIDE RECORDS SUMMARY | 2024-12-14 15:14 | XMS_ITS | Encounter Summary ---
Author Organization [employer] Address [address] [facility] 7 [place] [address] Care Team Providers Care Inside Sales Associate Name Role Phone Latonia Batres MD Primary Care Provider [phone] Reason for Visit * Reason Onset Date Comments Medication Question 08/20/2023 Encounter Details Date Type Department Care Team ([facility] st Contact Info) Description 08/20/2023 Telephone [facility] MEDICINE [address] [place] [address] Latonia Batres MD [address] [place] [address] Medication Question Social History Tobacco Use Types [...] and cefotaxime 200mg. Medication was prescribed by [facility] 08/07/23 (Date of Admission), pt stated she is taking medication as advised but feels as if pneumonia keeps coming back. Please contact pt at [phone]. documented in this encounter Plan of Treatment Upcoming Encounters Date Type Department Care Team (Late st Contact Info) Description 12/21/2024 11:15 AM EDT Office Visit [facility] MED & PEDS [address] [place] [address] Latonia Batres MD [address] [place] [address] documented as of this encounter Visit Diagnoses Not on filedocumented in this encounter Additional Health Concerns Assessment Noted Time PHQ-9 Depression Total Score: 15 023 1:39 PM EST documented as of this encounter Care Teams Inside Sales Associate Relationship Specialty Start Date End Date Latonia Batres MD [address] [place] [address] PCP - General Internal Medicine 12/27/21 documented as of this encounter
--- OUTSIDE RECORDS SUMMARY | 2024-12-14 15:14 | XMS_ITS | Encounter Summary ---
Author Organization [employer] Address [address] [place] [address] 7 [place] [address] Care Team Providers Care Campus Chaplain Name Role Phone Latonia Batres MD Primary Care Provider [phone] [phone] Encounter Details Date Type Department Care Team (Late Contact Info) Description 08/21/2023 Orders Only [facility] MED & PEDS [address] [place], [place] [phone] Latonia Batres MD [address] [place] [address] Pneumonia of left lower lobe due to [...] Description 12/21/2024 11:15 AM EDT Office Visit [facility] CH[facility] MED & PEDS [address] [place] [address] Latonia Batres MD [address] [place] [address] Scheduled Orders Name Type Priority Associated Diagnoses [...] documented as of this encounter Care Teams Campus Chaplain Relationship Specialty Start Date End Date Latonia Batres MD [address] [place] [address] PCP - General Internal Medicine 12/27/21 documented as of this encounter
--- OUTSIDE RECORDS SUMMARY | 2024-12-14 15:14 | XMS_ITS | Encounter Summary ---
Author Organization [employer] Address [address] [place] [address] 7 [place] [address] Care Team Providers Care Customer Liaison Name Role Phone Latonia Batres MD Primary Care Provider [phone] [phone] Reason for Visit * Reason Onset Date Comments Nurse Triage 08/05/2023 Encounter Details Date Type Department Care Team ([facility] st Contact Info) Description 08/05/2023 Telephone [facility] MED & PEDS [address] [place] [address] Latonia Batres MD [address] [place] [address] Nurse Triage Social History Tobacco Use Types [...] to pt. pt states seen ER at [facility] on Friday and diagnosed with Pneumonia. pt [...] accepted this outcome Please contact pt @ [phone] documented in this encounter Plan of Treatment Upcoming Encounters Date Type Department Care Team ([facility] st Contact Info) Description 12/21/2024 11:15 AM EDT Office Visit [facility] MED & PEDS [address] [place], [place] [phone] Latonia Batres MD [address] [place] [address] documented as of this encounter Visit Diagnoses Not on filedocumented in this encounter Additional Health Concerns Assessment Noted Time PHQ-9 Depression Total Score: 15 023 1:39 PM EST documented as of this encounter Care Teams Customer Liaison Relationship Specialty Start Date End Date Latonia Batres MD [address] [place] [address] PCP - General Internal Medicine 12/27/21 documented as of this encounter
--- OUTSIDE RECORDS SUMMARY | 2024-12-14 15:14 | XMS_ITS | Encounter Summary ---
Author Organization [employer] Address [address] [place] [address] [facility] [place] [address] Care Team Providers Care Safety Manager Name Role Phone Latonia Batres MD Primary Care Provider [phone] [phone] Encounter Details Date Type Department Care Team (Latest Contact Info) Description 08/18/2019 Abstract [facility] CONVERSIONS Dental, Provider, DDS Social History [...] Description 12/21/2024 11:15 AM EDT Office Visit [facility] CHC MED & PEDS [address] [place] [address] Latonia Batres MD [address] [place] [address] documented as of this encounter Visit Diagnoses Not on filedocumented in this encounter Care Teams Safety Manager Relationship Specialty Start Date End Date Latonia Batres MD [address] [place] [address] PCP - General Internal Medicine 12/27/21 documented as of this encounter
--- OUTSIDE RECORDS SUMMARY | 2024-12-14 15:14 | XMS_ITS | Encounter Summary ---
Author Organization [employer] Address [address] [facility] 7 [place] [address] Care Team Providers Care Arbor End Mainspring Former Name Role Phone Latonia Batres MD Primary Care Provider [phone] Reason for Visit * Reason Onset Date Comments Nurse Triage 02/23/2024 Encounter Details Date Type Department Care Team ([facility] st Contact Info) Description 02/23/2024 Telephone [facility] MEDICINE [address] [place] [address] Latonia Batres MD [address] [place] [address] Nurse Triage Social History Tobacco Use Types [...] updated and will bring insurance cards to [facility] apt and will call aheadif any [...] 12/21/2024 11:15 AM EDT Office Visit [facility] MED & PEDS [address] [place] [address] Latonia Batres MD [address] [place] [address] documented as of this encounter Visit Diagnoses Not on filedocumented in this encounter Additional Health Concerns Assessment Noted Time PHQ-9 Depression Total Score: 15 023 1:39 PM EST documented as of this encounter Care Teams Arbor [employer] Mainspring Former Relationship Specialty Start Date End Date Latonia Batres MD [address] [place] [address] PCP - General Internal Medicine 12/27/21 documented as of this encounter
--- OUTSIDE RECORDS SUMMARY | 2024-12-14 15:14 | XMS_ITS | Encounter Summary ---
Author Organization [employer] Address [address] [place] [address] [facility] [place] [address] Care Team Providers Care Petroleum Blending Plant Operator Name Role Phone Latonia Batres MD Primary Care Provider +1 [phone] Encounter Details Date Type Department Care Team (Latest Contact Info) Description 01/09/2022 Abstract [facility] CONVERSIONS Dental, Provider, DDS Social History [...] Description 12/21/2024 11:15 AM EDT Office Visit [facility] CH[facility] MED & PEDS [address] [place] [address] Latonia Batres MD [address] [place] [address] documented as of this encounter Visit Diagnoses Not on filedocumented in this encounter Care Teams Petroleum Blending Plant Operator Relationship Specialty Start Date End Date Latonia Batres MD [address] [place] [address] PCP - General Internal Medicine 12/27/21 documented as of this encounter
--- OUTSIDE RECORDS SUMMARY | 2024-12-14 15:14 | XMS_ITS | Encounter Summary ---
Author Organization [employer] Address [address] [place] [address] 7 [place] [address] Care Team Providers Care Ui Ux Web Developer Name Role Phone Latonia Batres MD Primary Care Provider [phone] Reason for Visit * Reason Onset Date Comments Nurse Triage 03/23/2024 Encounter Details Date Type Department Care Team ([facility] Contact Info) Description 03/23/[address] [facility] MED & PEDS [address] [place] [address] Latonia Batres MD [address] [place] [address] Nurse Triage Social History Tobacco Use Types [...] is advised to send family member to merchandise pickup/receiving associate test kit at [facility] pharmacy or place of choice. Pt [...] Description 12/21/2024 11:15 AM EDT Office Visit [facility] MED & PEDS [address] [place] [address] Latonia Batres MD [address] [place] [address] documented as of this encounter Visit Diagnoses Not on filedocumented in this encounter Additional Health Concerns Assessment Noted Time PHQ-9 Depression Total Score: 15 07/21/ 023 1:39 PM EST documented as of this encounter Care Teams U[employer] U[employer] Web Developer Relationship Specialty Start Date End Date Latonia Batres MD [address] [place] [address] PCP - General Internal Medicine 12/27/21 documented as of this encounter
--- OUTSIDE RECORDS SUMMARY | 2024-12-14 15:14 | XMS_ITS | Encounter Summary ---
Author Organization [employer] Address [address] [place] [address] Care Team Providers Care Senior Controls Technician Name Role Phone Latonia Batres MD Primary Care Provider [phone] [phone] Reason for Referral * Consultation (Routine) - Closed Specialty Diagnoses / Procedures Referred By Contac t Referred To Contact Rheumatology Diagnoses Pericardial effusion Latonia Batres MD [address] [place] [address] Phone: tel: fax: [facility] Rheumatology [address] [place] [address] Phone: tel: fax: Referral ID Status Reason Start Date Expiration Date V isits Requested Visits Authorized [id number] Closed Specialty Services Required 09/24/2023 09/23/2024 1 1 Encounter Details Date Type Department Care Team ([facility] st Contact Info) Description 09/24/2023 Orders Only [facility] MED & PEDS [address] [place] [address] Latonia Batres MD [address] [place], [place] [phone] Pericardial effusion (Primary Dx) Social History Tobacco [...] Upcoming Encounters Date Type Department Care Team ([facility] st Contact Info) Description 12/21/2024 11:15 AM EDT Office Visit [facility] MED & PEDS [address] [place] [address] Latonia Batres MD [address] [place] [address] Scheduled Referrals Name Type Priority Associated Diagnoses Order Schedule Referral to Rheumatology Outpatient Referral Routine Pericardial effusion Expected: 09/24/2023 (Approximate), Expires: 09/24/2024 documented as of this encounter Visit Diagnoses Diagnosis Pericardial effusion- Primary Unspecified disease of pericardium documented in this encounter Additional Health Concerns Assessment Noted Time PHQ-9 Depression Total Score: 15 023 1:39 PM EST documented as of this encounter Care Teams Senior Controls Technician Relationship Specialty Start Date End Date Latonia Batres MD [address] [place] [address] PCP - General Internal Medicine 12/27/21 documented as of this encounter
--- OUTSIDE RECORDS SUMMARY | 2024-12-14 15:14 | XMS_ITS | Encounter Summary ---
Author Organization [employer] Address [address] [place] [address] 7 [place] [address] Care Team Providers Care Outpatient Phlebotomist Name Role Phone Latonia Batres MD Primary Care Provider [phone] Encounter Details Date Type Department Care Team (Latest Contact Info) Description 09/13/2020 Abstract [facility] CONVERSIONS Dental, Provider, DDS Social History [...] Description 12/21/2024 11:15 AM EDT Office Visit [facility] CH[facility] MED & PEDS [address] [place] [address] Latonia Batres MD [address] [place] [address] documented as of this encounter Visit Diagnoses Not on filedocumented in this encounter Care Teams Outpatient Phlebotomist Relationship Specialty Start Date End Date Latonia Batres MD [address] [place] [address] PCP - General Internal Medicine 12/27/21 documented as of this encounter
== END 2024-12-14 14:04 | disposition home or self-care (01) ==
LOC: HO.HMGCX 14:03
PROVIDERS: PCP Internal Medicine; Visit Provider Internal Medicine
DX: N92.6 Irregular menstruation, unspecified (principal)
CPT/HCPCS: 76830; 76856

== ENCOUNTER → 2024-12-14 14:12 | Outpatient (BNV) | payer BC, SELFPAY | PROVIDERS: PCP Internal Medicine; Visit Provider Radiology Diagnostic Radiology | DX: N92.6 Irregular menstruation, unspecified (principal) | CPT/HCPCS: 76830; 76856 ==